=== PATIENT | female | born 1955 | race African-American/Black ===

== ENCOUNTER 2018-09-02 22:28 | Inpatient (IN) | payer BC, OTHER ==
[~2018-09-02] VITALS: Ht 149.9 cm; Wt 72.8 kg
[2018-09-02] MEDS ORDERED: IV NORMAL SALINE 500ML BAG 500 ML IV ONE (22:45)
[2018-09-02] MEDS ORDERED: IPRATRPIUM/ALBUTEROL 0.5/2.5MG 3 ML NEBU. NEB ONE (22:45)
[2018-09-02 22:56] LABS: BASO % 1 % (0-3); EOS % 1 % (0-3); HEMATOCRIT 39.3 % (36.0-47.0); LYMPH # 2.8 x10^3/uL (1.0-4.8); LYMPH % 39 % (24-48); MEAN CORPUSCULAR HEMOGLOBIN 33 pg (25-35); MEAN CORPUSCULAR HGB CONC 33 g/dL (31-37); MEAN CORPUSCULAR VOLUME 99 fL (79-100); MONO # 0.7 x10^3/uL (0.0-1.1); MONO % 10 % (0-9); NEUT # 3.7 x10^3uL (1.8-7.7); NEUT % 51 % (31-73); PLATELET COUNT 147 x10^3/uL (140-400); RED BLOOD COUNT 3.96 x10^6/uL (3.50-5.40); RED CELL DISTRIBUTION WIDTH 13.8 % (11.5-14.5); WHITE BLOOD COUNT 7.3 x10^3/uL (4.0-11.0)
[2018-09-02 23:07] LABS: CALCIUM 8.4 mg/dL (8.5-10.1); CREATININE 3.1 mg/dL (0.6-1.0); GFR 15.1; POTASSIUM 4.7 mmol/L (3.5-5.1)
[2018-09-02 23:25] LABS: ALBUMIN/GLOBULIN RATIO 0.6 (1.0-1.7); MAGNESIUM 2.9 mg/dL (1.8-2.4); TOTAL BILIRUBIN 0.6 mg/dL (0.2-1.0); TOTAL PROTEIN 7.9 g/dL (6.4-8.2)
[2018-09-02] MEDS ORDERED: IV NORMAL SALINE 1000ML BAG 1,000 ML IV ONE (23:45)
[2018-09-03 00:14] LABS: BILIRUBIN,URINE NEGATIVE (NEG); CLARITY,URINE CLEAR; COLOR,URINE YELLOW; NITRITE,URINE NEGATIVE (NEG); PH,URINE 5.5; PROTEIN,URINE 30 mg/dL (NEG-TRACE); UROBILINOGEN,URINE 0.2 mg/dL (0.2 mg/dL)
[2018-09-03 00:28] LABS: BACTERIA,URINE 0 /HPF (0-FEW); RBC,URINE RARE /HPF (0-2); SQUAMOUS EPITHELIAL CELL,UR FEW /LPF; WBC,URINE 0 /HPF (0-4)
[2018-09-03 00:29] LABS: INFLUENZA A PATIENT NEGATIVE (NEGATIVE); INFLUENZA B PATIENT NEGATIVE (NEGATIVE)
--- NOTE | 2018-09-03 00:36 | PHYS DOC ---
Past Medical History Past Medical History: CHF, COPD, Diabetes-Type II, [place] Past Surgical History: Coronary Bypass Surgery, , Hysterectomy Alcohol Use: None Drug Use: None Adult General Chief Complaint Chief Complaint: WEAKNESS/GENERALIZED HPI HPI Patient is a 63 year old female who presents with generalized weakness and shortness of breath. This is been present for the past several days and getting worse over time. No fever. Decreased oral intake. Worsening symptoms with exertion, better with rest. No chest pain or palpitations. Symptoms are moderate to severe in intensity.[] Review of Systems Review of Systems Constitutional: Denies fever or chills [] Eyes: Denies change in visual acuity, redness, or eye pain [] HENT: Denies nasal congestion or sore throat [] Respiratory: See history of present illness[] Cardiovascular: No Chest pain or palpitations[] GI: Denies abdominal pain, nausea, vomiting, bloody stools or diarrhea [] : Denies dysuria or hematuria [] Musculoskeletal: Denies back pain or joint pain [] Integument: Denies rash or skin lesions [] Neurologic: Denies headache, focal weakness or sensory changes [] Endocrine: Denies polyuria or polydipsia [] All other systems were reviewed and found to be within normal limits, except as documented in this note. Current Medications Current Medications Current Medications Medications (Trade) Dose Ordered Sig/Rodney Start Time Stop Time Status Last Admin Dose Admin Albuterol/ Ipratropium (Duoneb) 3 ml 1X ONCE 09/02/18 22:45 09/02/18 22:52 DC 09/02/18 22:52 3 ML Sodium Chloride 1,000 ml @ 1,000 mls/hr 1X ONCE 09/02/18 23:45 09/03/18 00:44 DC 09/02/18 23:44 1,000 MLS/HR Allergies Allergies Allergies Coded Allergies Type Severity Reaction Last Updated Verified lisinopril Allergy Severe hives 09/02/18 Yes Iodinated Contrast- Oral and IV Dye Allergy Mild hives 09/02/18 Yes latex Allergy Mild hives 09/02/18 Yes Physical Exam Physical Exam Constitutional: Well developed, well nourished, no acute distress, non-toxic appearance. [] HENT: Normocephalic, atraumatic, bilateral external ears normal, oropharynx moist, no oral exudates, nose normal. [] Eyes: PERRLA, EOMI, conjunctiva normal, no discharge. [] Neck: Normal range of motion, no tenderness, supple, no stridor. [] Cardiovascular:Heart rate regular rhythm, no murmur [] Lungs & Thorax: Bilateral breath sounds clear to auscultation [] Abdomen: Bowel sounds normal, soft, no tenderness, no masses, no pulsatile masses. [] Skin: Warm, dry, no erythema, no rash. [] Back: No tenderness, no CVA tenderness. [] Extremities: No tenderness, no cyanosis, no clubbing, ROM intact, no edema. [] Neurologic: Alert and oriented X 3, normal motor function, normal sensory function, no focal deficits noted. [] Psychologic: Affect normal, judgement normal, mood normal. [] Current Patient Data Vital Signs Vital Signs Date Time Temp Pulse Resp B/P (MAP) Pulse Ox O2 Delivery O2 Flow Rate FiO2 09/02/18 23:51 96 20 95 09/02/18 22:54 Nasal Cannula 3.0 09/02/18 22:28 99.4 79/42 (54) 99.4 Lab Values Laboratory Tests Test 09/02/18 22:40 09/03/18 00:03 White Blood Count 7.3 x10^3/uL (4.0-11.0) Red Blood Count 3.96 x10^6/uL (3.50-5.40) Hemoglobin 13.0 g/dL (12.0-15.5) Hematocrit 39.3 % (36.0-47.0) Mean Corpuscular Volume 99 fL (79-100) Mean Corpuscular Hemoglobin 33 pg (25-35) Mean Corpuscular Hemoglobin Concent 33 g/dL (31-37) Red Cell Distribution Width 13.8 % (11.5-14.5) Platelet Count 147 x10^3/uL (140-400) Neutrophils (%) (Auto) 51 % (31-73) Lymphocytes (%) (Auto) 39 % (24-48) Monocytes (%) (Auto) 10 % (0-9) H Eosinophils (%) (Auto) 1 % (0-3) Basophils (%) (Auto) 1 % (0-3) Neutrophils # (Auto) 3.7 x10^3uL (1.8-7.7) Lymphocytes # (Auto) 2.8 x10^3/uL (1.0-4.8) Monocytes # (Auto) 0.7 x10^3/uL (0.0-1.1) Eosinophils # (Auto) 0.0 x10^3/uL (0.0-0.7) Basophils # (Auto) 0.0 x10^3/uL (0.0-0.2) Prothrombin Time 13.0 SEC (11.7-14.0) Prothrombin Time INR 1.0 (0.8-1.1) Sodium Level 138 mmol/L (136-145) Potassium Level 4.7 mmol/L (3.5-5.1) Chloride Level 99 mmol/L (98-107) Carbon Dioxide Level 30 mmol/L (21-32) Anion Gap 9 (6-14) Blood Urea Nitrogen 56 mg/dL (7-20) H Creatinine 3.1 mg/dL (0.6-1.0) H Estimated GFR (Cockcroft-Gault) 15.1 BUN/Creatinine Ratio 18 (6-20) Glucose Level 156 mg/dL (70-99) H Lactic Acid Level 1.5 mmol/L (0.4-2.0) Calcium Level 8.4 mg/dL (8.5-10.1) L Magnesium Level 2.9 mg/dL (1.8-2.4) H Total Bilirubin 0.6 mg/dL (0.2-1.0) Aspartate Amino Transferase (AST) 31 U/L (15-37) Alanine Aminotransferase (ALT) 24 U/L (14-59) Alkaline Phosphatase 68 U/L (46-116) Troponin I Quantitative 0.042 ng/mL (0.000-0.055) BE-Vkk-Y-Type Natriuretic Peptide 544 pg/mL (0-124) H Total Protein 7.9 g/dL (6.4-8.2) Albumin 3.0 g/dL (3.4-5.0) L Albumin/Globulin Ratio 0.6 (1.0-1.7) L Urine Collection Type U cath Urine Color Yellow Urine Clarity Clear Urine pH 5.5 Urine Specific [place] 1.015 Urine Protein 30 mg/dL (NEG-TRACE) Urine Glucose (UA) Negative mg/dL (NEG) Urine Ketones (Stick) Negative mg/dL (NEG) Urine Blood Negative (NEG) Urine Nitrite Negative (NEG) Urine Bilirubin Negative (NEG) Urine Urobilinogen Dipstick 0.2 mg/dL (0.2 mg/dL) Urine Leukocyte Esterase Negative (NEG) Urine RBC Rare /HPF (0-2) Urine WBC 0 /HPF (0-4) Urine Squamous Epithelial Cells Few /LPF Urine Bacteria 0 /HPF (0-FEW) Urine Mucus Slight /LPF Influenza Type A Antigen Negative (NEGATIVE) Influenza Type B Antigen Negative (NEGATIVE) Laboratory Tests 09/02/18 22:40 Laboratory Tests 09/02/18 22:40 EKG EKG [] Interpretation Time: EKG shows a sinus tachycardia at 105 bpm, left axis deviation, no ST elevation, QTC of 464 ms, interpreted by me at 2244 Radiology/Procedures Radiology/Procedures Chest x-ray shows no infiltrate, no effusion, and no pneumothorax[] Course & Med Decision Making Course & Med Decision Making Pertinent Labs and Imaging studies reviewed. (See chart for details) ED course: Patient arrived, was placed in bed, and tolerated exam well. She was noted to be hypertensive and due to concern about possible fluid overload initial 500 mL bolus was administered which didn't improve her blood pressure as well as reduce her heart rate 70 additional fluids were administered. Patient was given a breathing treatment which improved her breath sounds. Due to the weakness and the hypotension, along with the COPD exacerbation, elected to admit the patient.[] Dragon Disclaimer Dragon Disclaimer This electronic medical record was generated, in whole or in part, using a voice recognition dictation system. Departure Departure Impression: Primary Impression: Weakness Additional Impressions: Hypotension COPD exacerbation Renal insufficiency Disposition: ADMITTED INPATIENT Admitting Physician: Betarice Adam Condition: IMPROVED Referrals: RICKY ARNOLD (PCP) Problem Qualifiers Additional Impressions: Hypotension Hypotension type: unspecified hypotension type Qualified Codes: I95.9 - Hypotension, unspecified TIFFANY GUTIERREZ Sep 03, 2018 00:36
[2018-09-03] MEDS ORDERED: methylPREDNISolone SOD SUCC PF 125 MG/2 ML VIAL. IV ONE (00:45)
[2018-09-03] MEDS ORDERED: IV NORMAL SALINE 500ML BAG 500 ML IV ONE (01:15)
[2018-09-03] MEDS ORDERED: ONDANSETRON PF 4 MG/2 ML VIAL. IV PRN (01:30)
[2018-09-03] MEDS ORDERED: ACETAMINOPHEN 325 MG TABLET. PO PRN (01:30)
[2018-09-03 02:20] VITALS: BP 115/56
--- NOTE | 2018-09-03 03:09 | RAD ---
AP portable chest radiograph 09/03/2018 Clinical History: Shortness of breath. History of CHF. An AP erect portable digital radiograph of the chest was obtained. No previous studies are available for comparison. The patient is post CABG procedure. The cardiac silhouette is mildly enlarged. The thoracic aorta is tortuous. Prominence of the pulmonary vasculature is seen suggesting mild CHF. No area of consolidation is noted. No pneumothorax or pleural effusion is seen. Degenerative changes are seen involving the thoracic spine and both shoulders. IMPRESSION: Findings suggesting mild CHF. Electronically signed by: Pablo Grimm MD (09/03/2018 3:07 AM) [id number]
[2018-09-03] MEDS ORDERED: ASPI1CPM6 PO (03:44)
--- NOTE | 2018-09-03 05:14 | EKG ---
[facility] [address] [place] [address] Test Date: 2018-09-02 Test Time: 22:38:48 Pat Name: GEORGE RIVERA Department: Room: 207 1 Gender: F Cal[employer] Tender: : 1955 Requested By: TIFFANY GUTIERREZ Order Number: [id number] Reading MD: Ezio Adkins MD Measurements Intervals [place] Rate: 104 P: 34 AR: 138 QRS: -34 QRSD: 86 T: 116 QT: 348 QTc: 464 Interpretive Statements SINUS TACHYCARDIA LVH Electronically Signed On 09-03-2018 9:24:46 CDT by Ezio Adkins MD
[2018-09-03] MEDS: IV NORMAL SALINE 1000ML BAG 1,000 ML IV SCH ×3 (05:50→12:14)
[2018-09-03 07:00] VITALS: BP 114/56
[2018-09-03] MEDS ORDERED: IPRATRPIUM/ALBUTEROL 0.5/2.5MG 3 ML NEBU. NEB SCH (08:00)
[2018-09-03] MEDS ORDERED: ISOS20TA4 PO (08:40)
[2018-09-03] MEDS ORDERED: AMMO225L8 TP (08:40)
[2018-09-03] MEDS ORDERED: TIOT18CA IH (08:40)
[2018-09-03] MEDS ORDERED: GABA300C18 PO (08:40)
[2018-09-03] MEDS ORDERED: HYDR-2867 PO (08:40)
[2018-09-03] MEDS ORDERED: POTA20TA82 PO (08:40)
[2018-09-03] MEDS ORDERED: FURO80TA3 PO (08:40)
[2018-09-03] MEDS ORDERED: INSU100I13 SQ (08:40)
[2018-09-03] MEDS ORDERED: MAGN400T22 PO (08:40)
[2018-09-03] MEDS ORDERED: ASPI-630 PO (08:40)
[2018-09-03] MEDS ORDERED: ATORVASTATIN CA80 MG PO (08:40)
[2018-09-03] MEDS ORDERED: LORA10TA3 PO (08:40)
[2018-09-03] MEDS ORDERED: LOSA25TA54 PO (08:40)
[2018-09-03] MEDS ORDERED: GABAPENTIN 300 MG CAPSULE. PO PRN (09:30)
[2018-09-03] MEDS: hydrALAZINE 10 MG TABLET PO SCH ×3 (10:00→21:13)
[2018-09-03] MEDS: ISOSORBIDE DINITRATE 10 MG TABLET. PO SCH ×3 (10:00→21:14)
[2018-09-03] MEDS: LOSARTAN POTASSIUM 25 MG TABLET. PO SCH (10:00)
[2018-09-03] MEDS: AMMONIUM LACTATE 12% TOPICAL LOTION 226GM BOTTLE. TP SCH ×2 (10:00→21:14)
[2018-09-03 11:00] VITALS: BP_SYST 107; BP_DIAS 107; BP_DIAS 59
--- NOTE | 2018-09-03 11:00 | PDOC1 ---
History and Physical Date of Admission Date of Admission DATE: 09/03/18 TIME: 11:00 Identification/Chief Complaint Chief Complaint SEEN IN ER WITH generalized weakness and shortness of breath. This is been present for the past several days and getting worse over time. No fever. Decreased oral intake. Worsening symptoms with exertion, SOA and chest pain. Reports that she has been having chills and fever in the last 2-3 days. still smoking 1/2 ppd x 45 yrs Past Medical History Past Medical History Past Medical History Past Medical History Past Medical History: CHF, COPD, Diabetes-Type II, [place] Past Surgical History: Coronary Bypass Surgery, , Hysterectomy Alcohol Use: None Drug Use: None fhx obesity Pulmonary: Bronchitis, COPD Musculoskeletal: Osteoarthritis Renal/: Chronic renal failure Endocrine: Diabetes Family History Family History: Hypertension Social History Smoke: <1 pack per day ALCOHOL: none Drugs: None Current Problem List Problem List Problems Medical Problems: (1) COPD exacerbation Status: Acute (2) Hypotension Status: Acute (3) Renal insufficiency Status: Acute (4) Weakness Status: Acute Current Medications Current Medications Current Medications Sodium Chloride 500 ml @ 500 mls/hr 1X ONCE IV Last administered on at 23:02; Start 09/02/18 at 22:45; Stop 09/02/18 at 23:44; Status DC Albuterol/ Ipratropium (Duoneb) 3 ml 1X ONCE NEB Last administered on at 22:52; Start 09/02/18 at 22:45; Stop 09/02/18 at 22:52; Status DC Sodium Chloride 1,000 ml @ 1,000 mls/hr 1X ONCE IV Last administered on at 23:44; Start 09/02/18 at 23:45; Stop 09/03/18 at 00:44; Status DC Methylprednisolone Sodium Succinate (SOLU-Medrol 125MG VIAL) 125 mg 1X ONCE IV Last administered on 09/03/18at 01:02; Start 09/03/18 at 00:45; Stop 09/03/18 at 00:46; Status DC Sodium Chloride 500 ml @ 500 mls/hr 1X ONCE IV ; Start 09/03/18 at 01:15; Stop 09/03/18 at 02:14; Status DC Ondansetron HCl (Zofran) 4 mg PRN Q8HRS PRN IV NAUSEA/VOMITING; Start 09/03/18 at 01:30; Stop 09/04/18 at 01:29 Sodium Chloride 1,000 ml @ 150 mls/hr Q6H40M IV Last administered on at 05:50; Start 09/03/18 at 01:30; Stop 09/04/18 at 01:29 Acetaminophen (Tylenol) 650 mg PRN Q4HRS PRN PO FEVER; Start 09/03/18 at 01:30 ; Stop 09/04/18 at 01:29 Albuterol/ Ipratropium (Duoneb) 3 ml RTQID NEB Last administered on 09/03/18at 08:23; Start 09/03/18 at 08:00; Stop 09/03/18 at 09:31; Status DC Lactic Acid (Lac-Hydrin) 1 sherri BID TP ; Start 09/03/18 at 10:00 Aspirin (Children'S Aspirin) 81 mg DAILY PO ; Start 09/03/18 at 10:00 Furosemide (Lasix) 80 mg BID94 PO ; Start 09/03/18 at 10:00 Gabapentin (Neurontin) 300 mg PRN BID PRN PO neuropathy; Start 09/03/18 at 09: 30 Insulin Glargine (Lantus) 10 units QHS SQ ; Start 09/03/18 at 21:00 Losartan Potassium (Cozaar) 25 mg DAILY PO ; Start 09/03/18 at 10:00 Dipyridamole/ Aspirin (Aggrenox) 1 cap BID PO ; Start 09/03/18 at 10:00 Atorvastatin Calcium (Lipitor) 80 mg DAILY PO ; Start 09/03/18 at 10:00 Hydralazine HCl (Apresoline) 10 mg TID PO ; Start 09/03/18 at 10:00 Isosorbide Dinitrate (Isordil) 20 mg TID PO ; Start 09/03/18 at 10:00 Cetirizine HCl (ZyrTEC) 10 mg DAILY PO ; Start 09/04/18 at 09:00 Magnesium Oxide (Magnesium Oxide) 400 mg BID PO ; Start 09/03/18 at 10:00 Potassium Chloride (Klor-Con) 20 meq DAILYWBKFT PO ; Start 09/03/18 at 10:00 Albuterol/ Ipratropium (Duoneb) 3 ml RTQID NEB ; Start 09/03/18 at 12:00 Active Scripts Active Reported Spiriva (Tiotropium [place]) 18 Mcg Cap.w.dev 2 Inh IH DAILY Potassium Chloride 20 Meq Tablet.er 20 Meq PO DAILY Mag-Oxide (Magnesium Oxide) 400 Mg Tablet 1 Tab PO BID Losartan Potassium (Losartan Potassium) 25 Mg Tablet 25 Mg PO DAILY Loratadine 10 Mg Tablet 10 Tab PO DAILY Lantus Solostar (Insulin Glargine,Hum.rec.anlog) 100 Unit/1 Ml Insuln.pen 10 Unit SQ QHS Isosorbide Dinitrate 20 Mg Tablet 20 Mg PO TID Hydralazine Hcl 10 Mg Tablet 1 Tab PO TID Gabapentin (Gabapentin) 300 Mg Capsule 300 Mg PO BID PRN Furosemide 80 Mg Tablet 1 Tab PO BID Atorvastatin Calcium 80 Mg Tablet 1 Tab PO DAILY Aspirin 81 Mg Tab.chew 1 Tab PO DAILY Skin Treatment (Ammonium Lactate) 225 Gm Lotion 225 Gm TP BID Aspirin-Dipyridam ER 25-200 mg (Aspirin/Dipyridamole) 1 Each Cpmp.12hr 25-200 Mg PO BID Allergies Allergies: Coded Allergies: lisinopril (Verified Allergy, Severe, hives, 09/02/18) Iodinated Contrast- Oral and IV Dye (Verified Allergy, Mild, hives, ) latex (Verified Allergy, Mild, hives, 09/02/18) ROS Review of System Review of Systems Review of Systems Constitutional: Denies fever or chills [] Eyes: Denies change in visual acuity, redness, or eye pain [] HENT: Denies nasal congestion or sore throat [] Respiratory: See history of present illness[] Cardiovascular: No Chest pain or palpitations[] GI: Denies abdominal pain, nausea, vomiting, bloody stools or diarrhea [] : Denies dysuria or hematuria [] Musculoskeletal: Denies back pain or joint pain [] Integument: Denies rash or skin lesions [] Neurologic: Denies headache, focal weakness or sensory changes [] Endocrine: Denies polyuria or polydipsia [] 14 PT systems were reviewed and found to be within normal limits, except as documented General: YES: Fatigue ALLERGY AND IMMUNOLOGY: No: Hives, Insect Bite Sensitivity, Itchy/Watery Eyes, Nasal Congestion, Post Nasal Drip, Seasonal Allergies, Other ENDOCRINE: No: Breast Changes, Galactorrhea, Hair Pattern Changes, Hot Flashes , Malaise/lethargy, Mood Swings, Palpitations, Polydipsia/polyuria, Skin Changes , Temperature Intolerance, Unexpected Weight Changes, Other Respiratory: YES: Cough, Shortness of breath, SOB with excertion, Sputum Changes Cardiovascular: yes Other (chest tightness with cough) Genitourinary: No Dysuria, No Frequency, No Incontinence, No Hematuria, No Retention, No Discharge, No Urgency, No Pain, No Flank Pain, No Other, No , No , No , No , No , No , No Physical Exam Physical Exam Physical Exam Physical Exam Constitutional: Well developed, well nourished, mild acute distress, non-toxic appearance. [] HENT: Normocephalic, atraumatic, bilateral external ears normal, oropharynx moist, no oral exudates, nose normal. [] Eyes: PERRLA, EOMI, conjunctiva normal, no discharge. [] Neck: Normal range of motion, no tenderness, supple, no stridor. [] Cardiovascular:Heart rate regular rhythm, no murmur [] Lungs & Thorax: Bilateral breath exp phase inc, few exp wheezes[] Abdomen: Bowel sounds normal, soft, no tenderness, no masses, no pulsatile masses. [] Skin: Warm, dry, no erythema, no rash. [] Back: No tenderness, no CVA tenderness. [] Extremities: No tenderness, no cyanosis, no clubbing, ROM intact, no edema. [] Neurologic: Alert and oriented X 3, normal motor function, normal sensory function, no focal deficits noted. [] Psychologic: Affect normal, judgement normal, mood normal. [] General: Alert, Oriented X3, Cooperative HEENT: Atraumatic Breasts: Not examined Abdomen: Soft PELVIC: Examination not indicated Extremities: No cyanosis Neuro: Normal speech, Sensation intact, Cranial nerves 3-12 NL Psych/Mental Status: Mental status NL Vitals Vitals Vital Signs Date Time Temp Pulse Resp B/P (MAP) Pulse Ox O2 Delivery O2 Flow Rate FiO2 09/03/18 08:24 95 Nasal Cannula 3.0 09/03/18 07:00 98.7 88 18 114/56 (75) 98.7 Labs Labs Laboratory Tests Test 09/02/18 22:40 09/03/18 00:03 09/03/18 04:15 09/03/18 07:29 White Blood Count 7.3 x10^3/uL (4.0-11.0) Red Blood Count 3.96 x10^6/uL (3.50-5.40) Hemoglobin 13.0 g/dL (12.0-15.5) Hematocrit 39.3 % (36.0-47.0) Mean Corpuscular Volume 99 fL (79-100) Mean Corpuscular Hemoglobin 33 pg (25-35) Mean Corpuscular Hemoglobin Concent 33 g/dL (31-37) Red Cell Distribution Width 13.8 % (11.5-14.5) Platelet Count 147 x10^3/uL (140-400) Neutrophils (%) (Auto) 51 % (31-73) Lymphocytes (%) (Auto) 39 % (24-48) Monocytes (%) (Auto) 10 % (0-9) Eosinophils (%) (Auto) 1 % (0-3) Basophils (%) (Auto) 1 % (0-3) Neutrophils # (Auto) 3.7 x10^3uL (1.8-7.7) Lymphocytes # (Auto) 2.8 x10^3/uL (1.0-4.8) Monocytes # (Auto) 0.7 x10^3/uL (0.0-1.1) Eosinophils # (Auto) 0.0 x10^3/uL (0.0-0.7) Basophils # (Auto) 0.0 x10^3/uL (0.0-0.2) Prothrombin Time 13.0 SEC (11.7-14.0) Prothromb Time International Ratio 1.0 (0.8-1.1) Sodium Level 138 mmol/L (136-145) Potassium Level 4.7 mmol/L (3.5-5.1) Chloride Level 99 mmol/L (98-107) Carbon Dioxide Level 30 mmol/L (21-32) Anion Gap 9 (6-14) Blood Urea Nitrogen 56 mg/dL (7-20) Creatinine 3.1 mg/dL (0.6-1.0) Estimated GFR (Cockcroft-Gault) 15.1 BUN/Creatinine Ratio 18 (6-20) Glucose Level 156 mg/dL (70-99) Lactic Acid Level 1.5 mmol/L (0.4-2.0) Calcium Level 8.4 mg/dL (8.5-10.1) Magnesium Level 2.9 mg/dL (1.8-2.4) Total Bilirubin 0.6 mg/dL (0.2-1.0) Aspartate Amino Transf (AST/SGOT) 31 U/L (15-37) Alanine Aminotransferase (ALT/SGPT) 24 U/L (14-59) Alkaline Phosphatase 68 U/L (46-116) Troponin I Quantitative 0.042 ng/mL (0.000-0.055) 0.064 ng/mL (0.000-0.055) SL-Tcz-B-Type Natriuretic Peptide 544 pg/mL (0-124) Total Protein 7.9 g/dL (6.4-8.2) Albumin 3.0 g/dL (3.4-5.0) Albumin/Globulin Ratio 0.6 (1.0-1.7) Urine Collection Type U cath Urine Color Yellow Urine Clarity Clear Urine pH 5.5 Urine Specific Fowler 1.015 Urine Protein 30 mg/dL (NEG-TRACE) Urine Glucose (UA) Negative mg/dL (NEG) Urine Ketones (Stick) Negative mg/dL (NEG) Urine Blood Negative (NEG) Urine Nitrite Negative (NEG) Urine Bilirubin Negative (NEG) Urine Urobilinogen Dipstick 0.2 mg/dL (0.2 mg/dL) Urine Leukocyte Esterase Negative (NEG) Urine RBC Rare /HPF (0-2) Urine WBC 0 /HPF (0-4) Urine Squamous Epithelial Cells Few /LPF Urine Bacteria 0 /HPF (0-FEW) Urine Mucus Slight /LPF Influenza Type A Antigen Negative (NEGATIVE) Influenza Type B Antigen Negative (NEGATIVE) Glucose (Fingerstick) 178 mg/dL (70-99) Test 09/03/18 07:40 Troponin I Quantitative 0.057 ng/mL (0.000-0.055) Laboratory Tests Test 09/02/18 22:40 09/03/18 00:03 09/03/18 04:15 09/03/18 07:29 White Blood Count 7.3 x10^3/uL (4.0-11.0) Red Blood Count 3.96 x10^6/uL (3.50-5.40) Hemoglobin 13.0 g/dL (12.0-15.5) Hematocrit 39.3 % (36.0-47.0) Mean Corpuscular Volume 99 fL (79-100) Mean Corpuscular Hemoglobin 33 pg (25-35) Mean Corpuscular Hemoglobin Concent 33 g/dL (31-37) Red Cell Distribution Width 13.8 % (11.5-14.5) Platelet Count 147 x10^3/uL (140-400) Neutrophils (%) (Auto) 51 % (31-73) Lymphocytes (%) (Auto) 39 % (24-48) Monocytes (%) (Auto) 10 % (0-9) Eosinophils (%) (Auto) 1 % (0-3) Basophils (%) (Auto) 1 % (0-3) Neutrophils # (Auto) 3.7 x10^3uL (1.8-7.7) Lymphocytes # (Auto) 2.8 x10^3/uL (1.0-4.8) Monocytes # (Auto) 0.7 x10^3/uL (0.0-1.1) Eosinophils # (Auto) 0.0 x10^3/uL (0.0-0.7) Basophils # (Auto) 0.0 x10^3/uL (0.0-0.2) Prothrombin Time 13.0 SEC (11.7-14.0) Prothromb Time International Ratio 1.0 (0.8-1.1) Sodium Level 138 mmol/L (136-145) Potassium Level 4.7 mmol/L (3.5-5.1) Chloride Level 99 mmol/L (98-107) Carbon Dioxide Level 30 mmol/L (21-32) Anion Gap 9 (6-14) Blood Urea Nitrogen 56 mg/dL (7-20) Creatinine 3.1 mg/dL (0.6-1.0) Estimated GFR (Cockcroft-Gault) 15.1 BUN/Creatinine Ratio 18 (6-20) Glucose Level 156 mg/dL (70-99) Lactic Acid Level 1.5 mmol/L (0.4-2.0) Calcium Level 8.4 mg/dL (8.5-10.1) Magnesium Level 2.9 mg/dL (1.8-2.4) Total Bilirubin 0.6 mg/dL (0.2-1.0) Aspartate Amino Transf (AST/SGOT) 31 U/L (15-37) Alanine Aminotransferase (ALT/SGPT) 24 U/L (14-59) Alkaline Phosphatase 68 U/L (46-116) Troponin I Quantitative 0.042 ng/mL (0.000-0.055) 0.064 ng/mL (0.000-0.055) FL-Qbe-N-Type Natriuretic Peptide 544 pg/mL (0-124) Total Protein 7.9 g/dL (6.4-8.2) Albumin 3.0 g/dL (3.4-5.0) Albumin/Globulin Ratio 0.6 (1.0-1.7) Urine Collection Type U cath Urine Color Yellow Urine Clarity Clear Urine pH 5.5 Urine Specific Fowler 1.015 Urine Protein 30 mg/dL (NEG-TRACE) Urine Glucose (UA) Negative mg/dL (NEG) Urine Ketones (Stick) Negative mg/dL (NEG) Urine Blood Negative (NEG) Urine Nitrite Negative (NEG) Urine Bilirubin Negative (NEG) Urine Urobilinogen Dipstick 0.2 mg/dL (0.2 mg/dL) Urine Leukocyte Esterase Negative (NEG) Urine RBC Rare /HPF (0-2) Urine WBC 0 /HPF (0-4) Urine Squamous Epithelial Cells Few /LPF Urine Bacteria 0 /HPF (0-FEW) Urine Mucus Slight /LPF Influenza Type A Antigen Negative (NEGATIVE) Influenza Type B Antigen Negative (NEGATIVE) Glucose (Fingerstick) 178 mg/dL (70-99) Test 09/03/18 07:40 Troponin I Quantitative 0.057 ng/mL (0.000-0.055) Images Images AP portable chest radiograph 09/03/2018 Clinical History: Shortness of breath. History of CHF. An AP erect portable digital radiograph of the chest was obtained. No previous studies are available for comparison. The patient is post CABG procedure. The cardiac silhouette is mildly enlarged. The thoracic aorta is tortuous. Prominence of the pulmonary vasculature is seen suggesting mild CHF. No area of consolidation is noted. No pneumothorax or pleural effusion is seen. Degenerative changes are seen involving the thoracic spine and both shoulders. IMPRESSION: Findings suggesting mild CHF. Electronically signed by: Pablo Grimm MD (09/03/2018 3:07 AM) [facility] One or more of the following individualized dose reduction techniques were utilized for this examination: 1. Automated exposure control 2. Adjustment of the mA and/or kV according to patient size 3. Use of iterative reconstruction technique CT chest without contrast September 03, 2018 INDICATION: Dyspnea. COMPARISON: None available. TECHNIQUE: Multiple axial CT images of the chest were obtained without intravenous contrast. Coronal and sagittal reformats are provided. FINDINGS: The thyroid gland is normal in appearance. Precarinal lymph node measures 9 mm by short axis. Subcarinal lymph node measures 13 mm by short axis. Heart size is within normal limits. There are three-vessel coronary artery vascular calcifications. Ascending thoracic aorta is normal in course and caliber with moderate calcified atheromatous plaque. There are no pathologically enlarged axillary or internal mammary lymph nodes. Median sternotomy changes are present. There is no pericardial effusion. There is a 4 mm solid noncalcified pulmonary nodule in the superior segment right lower lobe (series 3, image 31). There is a 3 mm solid noncalcified pulmonary nodule in the posterior right upper lobe (series 3, image 1). There are no pleural effusions. No pulmonary vascular congestion. No focal airspace consolidation. No suspicious abnormal is identified in the visualized portions of the upper abdomen. No suspicious osseous abnormality is identified. IMPRESSION: 1. No focal pulmonary infiltrates are identified. 2. Solid noncalcified pulmonary nodules measure up to 4 mm. Recommend optional one-year follow-up chest CT based on risk factors to ensure stability. 3. Coronary artery vascular calcifications compatible with CAD. Electronically signed by: Cintia Palafox MD (09/03/2018 1:11 PM) [facility] Pulmonary Vein S1 Velocity 55.5cm/s D2 Velocity 63.8cm/s PVa duration 104msec LEFT VENTRICLE The left ventricle is normal size. Proximal septal thickening is noted. The left ventricular systolic function is normal. The Ejection Fraction is 55-60%. There is normal LV segmental wall motion. Transmitral Doppler flow pattern is Grade I-abnormal relaxation pattern. RIGHT VENTRICLE The right ventricle is normal size. There is normal right ventricular wall thickness. The right ventricular systolic function is normal. ATRIA The left atrium is borderline dilated. The right atrium size is normal. The interatrial septum is intact with no evidence for an atrial septal defect or patent foramen ovale as noted on 2-D or Doppler imaging. AORTIC VALVE The aortic valve is mildly calcified. Doppler and Color Flow revealed moderate aortic regurgitation. There is mild aortic stenosis. MITRAL VALVE The mitral valve is thickened but opens well. There is no evidence of mitral valve prolapse. There is no mitral valve stenosis. Doppler and Color-flow revealed trace mitral regurgitation. TRICUSPID VALVE The tricuspid valve is normal in structure and function. Doppler and Color Flow revealed no tricuspid valve regurgitation noted. There is no tricuspid valve prolapse or vegetation. There is no tricuspid valve stenosis. PULMONIC VALVE The pulmonic valve is not well visualized. GREAT VESSELS The aortic root is normal in size. The ascending aorta is normal in size. The IVC is normal in size and collapses >50% with inspiration. PERICARDIAL EFFUSION There is no evidence of significant pericardial effusion. Critical Notification Critical Value: No <Conclusion> The left ventricular systolic function is normal. The Ejection Fraction is 55-60%. There is normal LV segmental wall motion. Transmitral Doppler flow pattern is Grade I-abnormal relaxation pattern. Mild aortic stenosis. Moderate aortic regurgitation. Trace mitral regurgitation. There is no evidence of significant pericardial effusion. VTE Prophylaxis Ordered VTE Prophylaxis Devices: Yes VTE Pharmacological Prophylaxi: Yes Assessment/Plan Assessment/Plan ASSESSMENT 1. Atypical CP: 2. AE COPD with possible pneumonia //home tmax 102.9 3. Possible early sepsis with poor hydration adequacy: BP better after IVF. 4. diastolic CHF 5. RUFUS on CKD3: 6. Mild troponin elevation: peaked at 0.06// demand mediated related to above culprits 7. CAD; CABG x5 06/2008 8. IV DYE ALLERGY 9. Hyperglycemia 10.cardiomyopathy: EF on 05/2016 35% PLAN 1. TTE, 2. CT chest 3. STRESS TEST as indicated 4. cardiac records.from [facility] 6. Smoking cessation 7. Consult pulmonary 8. dvt prophylaxis 9. renal consult 10, iv doxy 100mg bid 11. follow renal fx 12. duonebs qid 13. gi prophylaxis 74 min exam time, chart review, > 50% of time with exam, chart review, pt care coordination ANTHONY SINGH MD Sep 03, 2018 11:00
[2018-09-03 11:37] LABS: CALCIUM 8.5 mg/dL (8.5-10.1); CREATININE 2.4 mg/dL (0.6-1.0); GFR 24.5; POTASSIUM 5.1 mmol/L (3.5-5.1)
[2018-09-03] MEDS: POTASSIUM CHLORIDE 20 MEQ TABLET.ER. PO SCH (11:39)
[2018-09-03] MEDS: ATORVASTATIN CALCIUM 40 MG TABLET. PO SCH (11:39)
[2018-09-03] MEDS: ASPIRIN/DIPYRIDAMOLE 200/25MG CAP.ER.12H. PO SCH ×2 (11:40→21:13)
[2018-09-03] MEDS: MAGNESIUM OXIDE 400 MG TABLET PO SCH ×2 (11:40→21:14)
[2018-09-03] MEDS: ASPIRIN CHEWABLE 81 MG TABLET. PO SCH (11:40)
[2018-09-03] MEDS: FUROSEMIDE 80 MG TABLET. PO SCH ×2 (11:40→12:14)
--- NOTE | 2018-09-03 11:53 | PDOC2 ---
ORLIN ISAACS [employer] 09/03/18 1153: CARDIAC CONSULT DATE OF CONSULT Date of Consult DATE: 09/03/18 TIME: 10:49 REASON FOR CONSULT Reason for Consult: Elevated trop REFERRING PHYSICIAN Referring Physician: Fullbright SOURCE Source: Chart review, Patient HISTORY OF PRESENT ILLNESS HISTORY OF PRESENT ILLNESS This is a pleasant 63 yo female admitted for complains of SOA and chest pain. Reports that she has been having chills and fever in the last 2-3 days. She also has not been drinking enough fluids in the last few days, feeling lost of appetite. She has been coughing and feeling ore SOA in the last 3 days. Leon been having productive cough with yellow sputum. Her exertional tolerance is low but no changes prior to her start of symptoms. She has not been sleeping well due to cough. She vomited at one time after coughing. Her chest pain is described as tightness after bouts of coughing. No palpiations, dizziness or any passing out. 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 She does have renal insufficiency, CAD, and COPD and her specialists are all in [facility]. The last stress test was 2 yrs ago and it was ok as this was told of her. No frequent NSAID use. She use O2 at night only. She still smokes tobacco. PAST MEDICAL HISTORY Cardiovascular: CAD, HTN, Hyperlipidemia Pulmonary: COPD, Other (NAVEED) CENTRAL NERVOUS SYSTEM: CVA GI: GERD Heme/Onc: Anemia NOS Hepatobiliary: No pertinent hx Psych: No pertinent hx Musculoskeletal: Osteoarthritis Rheumatologic: No pertinent hx, Gout Infectious disease: No pertinent hx ENT: No pertinent hx Renal/: Chronic renal insuff Endocrine: Diabetes (wa taken off insulin previously with last noted A1C at 5.4 ), Hypothyroidism Dermatology: No pertinent hx PAST SURGICAL HISTORY Past Surgical History: CABG (x5 06/2008), (x2), Hysterectomy ([facility]ANCHO/BSO) FAMILY HISTORY Family History: Heart Disease SOCIAL HISTORY Smoke: <1 pack per day ALCOHOL: none Drugs: None Lives: Alone CURRENT MEDICATIONS CURRENT MEDICATIONS Current Medications Medications (Trade) Dose Ordered Sig/Rodney Route PRN Reason Start Time Stop Time Status Last Admin Dose Admin Sodium Chloride 500 ml @ 500 mls/hr 1X ONCE IV 09/02/18 22:45 09/02/18 23:44 DC 09/02/18 23:02 Albuterol/ Ipratropium (Duoneb) 3 ml 1X ONCE NEB 09/02/18 22:45 09/02/18 22:52 DC 09/02/18 22:52 Sodium Chloride 1,000 ml @ 1,000 mls/hr 1X ONCE IV 09/02/18 23:45 09/03/18 00:44 DC 09/02/18 23:44 Methylprednisolone Sodium Succinate (SOLU-Medrol 125MG VIAL) 125 mg 1X ONCE IV 09/03/18 00:45 09/03/18 00:46 DC 09/03/18 01:02 Sodium Chloride 1,000 ml @ 150 mls/hr Q6H40M IV 09/03/18 01:30 09/04/18 01:29 09/03/18 05:50 Albuterol/ Ipratropium (Duoneb) 3 ml RTQID NEB 09/03/18 08:00 09/03/18 09:31 DC 09/03/18 08:23 ALLERGIES ALLERGIES: Coded Allergies: lisinopril (Verified Allergy, Severe, hives, 09/02/18) Iodinated Contrast- Oral and IV Dye (Verified Allergy, Mild, hives, ) latex (Verified Allergy, Mild, hives, 09/02/18) ROS Review of System 14 point ROS evaluated with pertinent positives noted per HPI PHYSICAL EXAM General: Alert, Oriented X3, Cooperative, No acute distress HEENT: Atraumatic, Mucous membr. moist/pink Lungs: Other (upper rhonchi with diffuse expiratory wheeze) Heart: Regular rate (SR), Other (distant hearts ounds) Abdomen: Soft, No tenderness Extremities: No cyanosis, No edema Skin: No breakdown, No significant lesion Neuro: Normal speech, Sensation intact Psych/Mental Status: Mental status NL, Mood NL MUSCULOSKELETAL: Osteoarthritic changes both hands VITALS VITALS Vital Signs Date Time Temp Pulse Resp B/P (MAP) Pulse Ox O2 Delivery O2 Flow Rate FiO2 09/03/18 08:24 95 Nasal Cannula 3.0 09/03/18 07:00 98.7 88 18 114/56 (75) 98.7 LABS Lab: Laboratory Tests Test 09/02/18 22:40 09/03/18 00:03 09/03/18 04:15 09/03/18 07:29 White Blood Count 7.3 x10^3/uL (4.0-11.0) Red Blood Count 3.96 x10^6/uL (3.50-5.40) Hemoglobin 13.0 g/dL (12.0-15.5) Hematocrit 39.3 % (36.0-47.0) Mean Corpuscular Volume 99 fL (79-100) Mean Corpuscular Hemoglobin 33 pg (25-35) Mean Corpuscular Hemoglobin Concent 33 g/dL (31-37) Red Cell Distribution Width 13.8 % (11.5-14.5) Platelet Count 147 x10^3/uL (140-400) Neutrophils (%) (Auto) 51 % (31-73) Lymphocytes (%) (Auto) 39 % (24-48) Monocytes (%) (Auto) 10 % (0-9) Eosinophils (%) (Auto) 1 % (0-3) Basophils (%) (Auto) 1 % (0-3) Neutrophils # (Auto) 3.7 x10^3uL (1.8-7.7) Lymphocytes # (Auto) 2.8 x10^3/uL (1.0-4.8) Monocytes # (Auto) 0.7 x10^3/uL (0.0-1.1) Eosinophils # (Auto) 0.0 x10^3/uL (0.0-0.7) Basophils # (Auto) 0.0 x10^3/uL (0.0-0.2) Prothrombin Time 13.0 SEC (11.7-14.0) Prothromb Time International Ratio 1.0 (0.8-1.1) Sodium Level 138 mmol/L (136-145) Potassium Level 4.7 mmol/L (3.5-5.1) Chloride Level 99 mmol/L (98-107) Carbon Dioxide Level 30 mmol/L (21-32) Anion Gap 9 (6-14) Blood Urea Nitrogen 56 mg/dL (7-20) Creatinine 3.1 mg/dL (0.6-1.0) Estimated GFR (Cockcroft-Gault) 15.1 BUN/Creatinine Ratio 18 (6-20) Glucose Level 156 mg/dL (70-99) Lactic Acid Level 1.5 mmol/L (0.4-2.0) Calcium Level 8.4 mg/dL (8.5-10.1) Magnesium Level 2.9 mg/dL (1.8-2.4) Total Bilirubin 0.6 mg/dL (0.2-1.0) Aspartate Amino Transf (AST/SGOT) 31 U/L (15-37) Alanine Aminotransferase (ALT/SGPT) 24 U/L (14-59) Alkaline Phosphatase 68 U/L (46-116) Troponin I Quantitative 0.042 ng/mL (0.000-0.055) 0.064 ng/mL (0.000-0.055) YW-Mdy-E-Type Natriuretic Peptide 544 pg/mL (0-124) Total Protein 7.9 g/dL (6.4-8.2) Albumin 3.0 g/dL (3.4-5.0) Albumin/Globulin Ratio 0.6 (1.0-1.7) Urine Collection Type U cath Urine Color Yellow Urine Clarity Clear Urine pH 5.5 Urine Specific [place] 1.015 Urine Protein 30 mg/dL (NEG-TRACE) Urine Glucose (UA) Negative mg/dL (NEG) Urine Ketones (Stick) Negative mg/dL (NEG) Urine Blood Negative (NEG) Urine Nitrite Negative (NEG) Urine Bilirubin Negative (NEG) Urine Urobilinogen Dipstick 0.2 mg/dL (0.2 mg/dL) Urine Leukocyte Esterase Negative (NEG) Urine RBC Rare /HPF (0-2) Urine WBC 0 /HPF (0-4) Urine Squamous Epithelial Cells Few /LPF Urine Bacteria 0 /HPF (0-FEW) Urine Mucus Slight /LPF Influenza Type A Antigen Negative (NEGATIVE) Influenza Type B Antigen Negative (NEGATIVE) Glucose (Fingerstick) 178 mg/dL (70-99) Test 09/03/18 07:40 Troponin I Quantitative 0.057 ng/mL (0.000-0.055) ASSESSMENT/PLAN ASSESSMENT/PLAN 1. Atypical CP: doubt ACS. possibly from bronchospasm 2. AECOPD with possible pneumonia with continued tobaccoism: reported fever at home tmax 102.9 3. Possible early sepsis with poor hydration adequacy: BP better after IVF. 4. Mild diastolic CHF 5. RUFUS on CKD3: Cr at 3.1 with past Cr at 1.7 noted in 06/2017 6. Mild troponin elevation: peaked at 0.06. EKG SR with LVH, suspect demand mediated related to above culprits 7. CAD; CABG x5 06/2008 8. Hx of angioedema: both from IV contrast and ACEi 9. Hyperglycemia: possibly steroid related. Has hx of DM2 taken off insulin with reported A1C at 5.4, possible hypoglycemic episodes 10. Hx of cardiomyopathy: EF on 05/2016 35% Recommendations 1. TTE, TSH, lipids, A1C, BMP and Mg. 2. CT chest no contrast. Has received IVF. DC and push PO fluids. 3. Consider outpt stress test once extra cardiac issues are resolved. 4. Hold BP meds and diuretic for now till BP is consistently adequate 5. Will obtain cardiac records.from [facility] 6. Smoking cessation 7. Consult pulmonary FLOWER ANDERSON MD 09/03/18 1621: CARDIAC CONSULT ASSESSMENT/PLAN ASSESSMENT/PLAN Patient seen and examined. Agree with ADDRESSER's assessment and plan. Chest pain with atypical features Myocardial infarction has been ruled out 2-D echo showed normal LV systolic function without any wall motion abnormalities CAD status appears clinically stable Plan ischemic evaluation as an outpatient Continue current treatment for COPD exacerbation Thank you for your consultation ORLIN ISAACS APRN Sep 03, 2018 11:53 FLOWER ANDERSON MD Sep 03, 2018 16:21
[2018-09-03 11:58] LABS: MAGNESIUM 2.9 mg/dL (1.8-2.4)
[2018-09-03 12:04] LABS: CHOLESTEROL/HDL RATIO 6.5
[2018-09-03] MEDS: IPRATRPIUM/ALBUTEROL 0.5/2.5MG 3 ML NEBU. NEB SCH ×3 (12:48→20:34)
--- NOTE | 2018-09-03 13:14 | RAD ---
RS Compliance Statement: One or more of the following individualized dose reduction techniques were utilized for this examination: 1. Automated exposure control 2. Adjustment of the mA and/or kV according to patient size 3. Use of iterative reconstruction technique CT chest without contrast September 03, 2018 INDICATION: Dyspnea. COMPARISON: None available. TECHNIQUE: Multiple axial CT images of the chest were obtained without intravenous contrast. Coronal and sagittal reformats are provided. FINDINGS: The thyroid gland is normal in appearance. Precarinal lymph node measures 9 mm by short axis. Subcarinal lymph node measures 13 mm by short axis. Heart size is within normal limits. There are three-vessel coronary artery vascular calcifications. Ascending thoracic aorta is normal in course and caliber with moderate calcified atheromatous plaque. There are no pathologically enlarged axillary or internal mammary lymph nodes. Median sternotomy changes are present. There is no pericardial effusion. There is a 4 mm solid noncalcified pulmonary nodule in the superior segment right lower lobe (series 3, image 31). There is a 3 mm solid noncalcified pulmonary nodule in the posterior right upper lobe (series 3, image 1). There are no pleural effusions. No pulmonary vascular congestion. No focal airspace consolidation. No suspicious abnormal is identified in the visualized portions of the upper abdomen. No suspicious osseous abnormality is identified. IMPRESSION: 1. No focal pulmonary infiltrates are identified. 2. Solid noncalcified pulmonary nodules measure up to 4 mm. Recommend optional one-year follow-up chest CT based on risk factors to ensure stability. 3. Coronary artery vascular calcifications compatible with CAD. Electronically signed by: Cintia Palafox MD (09/03/2018 1:11 PM) [id number]
--- NOTE | 2018-09-03 14:22 | CARD ---
MR#: [id number] Date of Study: 09/03/2018 Ordering Physician: ORLIN ISAACS, Referring Physician: STACY FAJARDO Tech: Terri Hearn ADINA APPROVED REPORT EXAM: Two-dimensional and M-mode echocardiogram with Doppler and color Doppler. Other Information Quality : AverageHR: 93bpm Rhythm : NSRTechnically limited study due to smoking and CABG. INDICATION Chest Pain Surgery/Intervention CABG: Date: 2006 2D DIMENSIONS RVDd3.0 (2.9-3.5cm)Left Atrium(2D)4.1 (1.6-4.0cm) IVSd1.1 (0.7-1.1cm)Aortic Root(2D)2.7 (2.0-3.7cm) LVDd4.4 (3.9-5.9cm)LVOT Diameter1.8 (1.8-2.4cm) PWd1.0 (0.7-1.1cm)LVDs3.1 (2.5-4.0cm) FS (%) 28.9 %SV48.3 ml LVEF(%)55.8 (>50%) M-Mode DIMENSIONS Left Atrium(MM)3.94 (2.5-4.0cm)Aortic Root3.03 (2.2-3.7cm) Aortic Valve AoV Peak Stevie.221.9cm/sAoV VTI39.3cm AO Peak GR.19.7mmHgLVOT Peak Stevie.91.0cm/s AO Mean GR.11mmHgAVA (VMAX)1.07cm2 NNAMDI (VTI)1.47xi9MY P 1/2 Cfoe774st Mitral Valve MV E Sixhhwor29.2cm/sMV E Peak Gr.12mmHg MV DECEL [id number] A Qlyljabk824.0cm/s MV E Mean Gr.5mmHgE/A Ratio0.6 MV A [id number] Pulmonary Valve PV Peak Tlokxoue73.3cm/s Pulmonary Vein S1 Risosxbj63.5cm/sD2 Lmopdvzi68.8cm/s PVa [id number] LEFT VENTRICLE The left ventricle is normal size. Proximal septal thickening is noted. The left ventricular systolic function is normal. The Ejection Fraction is 55-60%. There is normal LV segmental wall motion. Trans mitral Doppler flow pattern is Grade I-abnormal relaxation pattern. RIGHT VENTRICLE The right ventricle is normal size. There is normal right ventricular wall thickness. The right ventr icular systolic function is normal. ATRIA The left atrium is borderline dilated. The right atrium size is normal. The interatrial septum is int act with no evidence for an atrial septal defect or patent foramen ovale as noted on 2-D or Doppler i maging. AORTIC VALVE The aortic valve is mildly calcified. Doppler and Color Flow revealed moderate aortic regurgitation. There is mild aortic stenosis. MITRAL VALVE The mitral valve is thickened but opens well. There is no evidence of mitral valve prolapse. There is no mitral valve stenosis. Doppler and Color-flow revealed trace mitral regurgitation. TRICUSPID VALVE The tricuspid valve is normal in structure and function. Doppler and Color Flow revealed no tricuspid valve regurgitation noted. There is no tricuspid valve prolapse or vegetation. There is no tricuspid valve stenosis. PULMONIC VALVE The pulmonic valve is not well visualized. GREAT VESSELS The aortic root is normal in size. The ascending aorta is normal in size. The IVC is normal in size a nd collapses >50% with inspiration. PERICARDIAL EFFUSION There is no evidence of significant pericardial effusion. Critical Notification Critical Value: No <Conclusion> The left ventricular systolic function is normal. The Ejection Fraction is 55-60%. There is normal LV segmental wall motion. Transmitral Doppler flow pattern is Grade I-abnormal relaxation pattern. Mild aortic stenosis. Moderate aortic regurgitation. Trace mitral regurgitation. There is no evidence of significant pericardial effusion. Signed by : Eduardo Martell, Electronically Approved : 09/03/2018 14:22:43
[2018-09-03 15:00] VITALS: BP 109/53
[2018-09-03] MEDS ORDERED: IV NORMAL SALINE 1000ML BAG 1,000 ML IV ONE (15:00)
--- NOTE | 2018-09-03 16:51 | PDOC ---
PULMONARY PROGRESS NOTES Vitals Vital Signs Date Time Temp Pulse Resp B/P (MAP) Pulse Ox O2 Delivery O2 Flow Rate FiO2 09/03/18 16:02 Nasal Cannula 3.0 09/03/18 15:00 98.5 89 18 109/53 (71) 98 98.5 Labs Laboratory Tests Test 09/02/18 22:40 09/03/18 00:03 09/03/18 04:15 09/03/18 07:29 White Blood Count 7.3 x10^3/uL (4.0-11.0) Red Blood Count 3.96 x10^6/uL (3.50-5.40) Hemoglobin 13.0 g/dL (12.0-15.5) Hematocrit 39.3 % (36.0-47.0) Mean Corpuscular Volume 99 fL (79-100) Mean Corpuscular Hemoglobin 33 pg (25-35) Mean Corpuscular Hemoglobin Concent 33 g/dL (31-37) Red Cell Distribution Width 13.8 % (11.5-14.5) Platelet Count 147 x10^3/uL (140-400) Neutrophils (%) (Auto) 51 % (31-73) Lymphocytes (%) (Auto) 39 % (24-48) Monocytes (%) (Auto) 10 % (0-9) Eosinophils (%) (Auto) 1 % (0-3) Basophils (%) (Auto) 1 % (0-3) Neutrophils # (Auto) 3.7 x10^3uL (1.8-7.7) Lymphocytes # (Auto) 2.8 x10^3/uL (1.0-4.8) Monocytes # (Auto) 0.7 x10^3/uL (0.0-1.1) Eosinophils # (Auto) 0.0 x10^3/uL (0.0-0.7) Basophils # (Auto) 0.0 x10^3/uL (0.0-0.2) Prothrombin Time 13.0 SEC (11.7-14.0) Prothromb Time International Ratio 1.0 (0.8-1.1) Sodium Level 138 mmol/L (136-145) Potassium Level 4.7 mmol/L (3.5-5.1) Chloride Level 99 mmol/L (98-107) Carbon Dioxide Level 30 mmol/L (21-32) Anion Gap 9 (6-14) Blood Urea Nitrogen 56 mg/dL (7-20) Creatinine 3.1 mg/dL (0.6-1.0) Estimated GFR (Cockcroft-Gault) 15.1 BUN/Creatinine Ratio 18 (6-20) Glucose Level 156 mg/dL (70-99) Lactic Acid Level 1.5 mmol/L (0.4-2.0) Calcium Level 8.4 mg/dL (8.5-10.1) Magnesium Level 2.9 mg/dL (1.8-2.4) Total Bilirubin 0.6 mg/dL (0.2-1.0) Aspartate Amino Transf (AST/SGOT) 31 U/L (15-37) Alanine Aminotransferase (ALT/SGPT) 24 U/L (14-59) Alkaline Phosphatase 68 U/L (46-116) Troponin I Quantitative 0.042 ng/mL (0.000-0.055) 0.064 ng/mL (0.000-0.055) CS-Iph-S-Type Natriuretic Peptide 544 pg/mL (0-124) Total Protein 7.9 g/dL (6.4-8.2) Albumin 3.0 g/dL (3.4-5.0) Albumin/Globulin Ratio 0.6 (1.0-1.7) Urine Collection Type U cath Urine Color Yellow Urine Clarity Clear Urine pH 5.5 Urine Specific [place] 1.015 Urine Protein 30 mg/dL (NEG-TRACE) Urine Glucose (UA) Negative mg/dL (NEG) Urine Ketones (Stick) Negative mg/dL (NEG) Urine Blood Negative (NEG) Urine Nitrite Negative (NEG) Urine Bilirubin Negative (NEG) Urine Urobilinogen Dipstick 0.2 mg/dL (0.2 mg/dL) Urine Leukocyte Esterase Negative (NEG) Urine RBC Rare /HPF (0-2) Urine WBC 0 /HPF (0-4) Urine Squamous Epithelial Cells Few /LPF Urine Bacteria 0 /HPF (0-FEW) Urine Mucus Slight /LPF Influenza Type A Antigen Negative (NEGATIVE) Influenza Type B Antigen Negative (NEGATIVE) Glucose (Fingerstick) 178 mg/dL (70-99) Test 09/03/18 07:40 09/03/18 11:45 09/03/18 16:13 Sodium Level 141 mmol/L (136-145) Potassium Level 5.1 mmol/L (3.5-5.1) Chloride Level 105 mmol/L (98-107) Carbon Dioxide Level 27 mmol/L (21-32) Anion Gap 9 (6-14) Blood Urea Nitrogen 52 mg/dL (7-20) Creatinine 2.4 mg/dL (0.6-1.0) Estimated GFR (Cockcroft-Gault) 24.5 Glucose Level 181 mg/dL (70-99) Calcium Level 8.5 mg/dL (8.5-10.1) Magnesium Level 2.9 mg/dL (1.8-2.4) Troponin I Quantitative 0.057 ng/mL (0.000-0.055) Triglycerides Level 212 mg/dL (0-150) Cholesterol Level 136 mg/dL (0-200) LDL Cholesterol, Calculated 73 mg/dL (0-100) VLDL Cholesterol, Calculated 42 mg/dL (0-40) Non-HDL Cholesterol Calculated 115 mg/dL (0-129) HDL Cholesterol 21 mg/dL (40-60) Cholesterol/HDL Ratio 6.5 Thyroid Stimulating Hormone (TSH) 0.476 uIU/mL (0.358-3.74) Glucose (Fingerstick) 195 mg/dL (70-99) 222 mg/dL (70-99) Laboratory Tests Test 09/02/18 22:40 09/03/18 00:03 09/03/18 04:15 09/03/18 07:29 White Blood Count 7.3 x10^3/uL (4.0-11.0) Red Blood Count 3.96 x10^6/uL (3.50-5.40) Hemoglobin 13.0 g/dL (12.0-15.5) Hematocrit 39.3 % (36.0-47.0) Mean Corpuscular Volume 99 fL (79-100) Mean Corpuscular Hemoglobin 33 pg (25-35) Mean Corpuscular Hemoglobin Concent 33 g/dL (31-37) Red Cell Distribution Width 13.8 % (11.5-14.5) Platelet Count 147 x10^3/uL (140-400) Neutrophils (%) (Auto) 51 % (31-73) Lymphocytes (%) (Auto) 39 % (24-48) Monocytes (%) (Auto) 10 % (0-9) Eosinophils (%) (Auto) 1 % (0-3) Basophils (%) (Auto) 1 % (0-3) Neutrophils # (Auto) 3.7 x10^3uL (1.8-7.7) Lymphocytes # (Auto) 2.8 x10^3/uL (1.0-4.8) Monocytes # (Auto) 0.7 x10^3/uL (0.0-1.1) Eosinophils # (Auto) 0.0 x10^3/uL (0.0-0.7) Basophils # (Auto) 0.0 x10^3/uL (0.0-0.2) Prothrombin Time 13.0 SEC (11.7-14.0) Prothromb Time International Ratio 1.0 (0.8-1.1) Sodium Level 138 mmol/L (136-145) Potassium Level 4.7 mmol/L (3.5-5.1) Chloride Level 99 mmol/L (98-107) Carbon Dioxide Level 30 mmol/L (21-32) Anion Gap 9 (6-14) Blood Urea Nitrogen 56 mg/dL (7-20) Creatinine 3.1 mg/dL (0.6-1.0) Estimated GFR (Cockcroft-Gault) 15.1 BUN/Creatinine Ratio 18 (6-20) Glucose Level 156 mg/dL (70-99) Lactic Acid Level 1.5 mmol/L (0.4-2.0) Calcium Level 8.4 mg/dL (8.5-10.1) Magnesium Level 2.9 mg/dL (1.8-2.4) Total Bilirubin 0.6 mg/dL (0.2-1.0) Aspartate Amino Transf (AST/SGOT) 31 U/L (15-37) Alanine Aminotransferase (ALT/SGPT) 24 U/L (14-59) Alkaline Phosphatase 68 U/L (46-116) Troponin I Quantitative 0.042 ng/mL (0.000-0.055) 0.064 ng/mL (0.000-0.055) HJ-Qio-Z-Type Natriuretic Peptide 544 pg/mL (0-124) Total Protein 7.9 g/dL (6.4-8.2) Albumin 3.0 g/dL (3.4-5.0) Albumin/Globulin Ratio 0.6 (1.0-1.7) Urine Collection Type U cath Urine Color Yellow Urine Clarity Clear Urine pH 5.5 Urine Specific [place] 1.015 Urine Protein 30 mg/dL (NEG-TRACE) Urine Glucose (UA) Negative mg/dL (NEG) Urine Ketones (Stick) Negative mg/dL (NEG) Urine Blood Negative (NEG) Urine Nitrite Negative (NEG) Urine Bilirubin Negative (NEG) Urine Urobilinogen Dipstick 0.2 mg/dL (0.2 mg/dL) Urine Leukocyte Esterase Negative (NEG) Urine RBC Rare /HPF (0-2) Urine WBC 0 /HPF (0-4) Urine Squamous Epithelial Cells Few /LPF Urine Bacteria 0 /HPF (0-FEW) Urine Mucus Slight /LPF Influenza Type A Antigen Negative (NEGATIVE) Influenza Type B Antigen Negative (NEGATIVE) Glucose (Fingerstick) 178 mg/dL (70-99) Test 09/03/18 07:40 09/03/18 11:45 09/03/18 16:13 Sodium Level 141 mmol/L (136-145) Potassium Level 5.1 mmol/L (3.5-5.1) Chloride Level 105 mmol/L (98-107) Carbon Dioxide Level 27 mmol/L (21-32) Anion Gap 9 (6-14) Blood Urea Nitrogen 52 mg/dL (7-20) Creatinine 2.4 mg/dL (0.6-1.0) Estimated GFR (Cockcroft-Gault) 24.5 Glucose Level 181 mg/dL (70-99) Calcium Level 8.5 mg/dL (8.5-10.1) Magnesium Level 2.9 mg/dL (1.8-2.4) Troponin I Quantitative 0.057 ng/mL (0.000-0.055) Triglycerides Level 212 mg/dL (0-150) Cholesterol Level 136 mg/dL (0-200) LDL Cholesterol, Calculated 73 mg/dL (0-100) VLDL Cholesterol, Calculated 42 mg/dL (0-40) Non-HDL Cholesterol Calculated 115 mg/dL (0-129) HDL Cholesterol 21 mg/dL (40-60) Cholesterol/HDL Ratio 6.5 Thyroid Stimulating Hormone (TSH) 0.476 uIU/mL (0.358-3.74) Glucose (Fingerstick) 195 mg/dL (70-99) 222 mg/dL (70-99) Medications Active Scripts Medications Dose Route/Sig Max Daily Dose Days Date Category Spiriva (Tiotropium [place]) 18 Mcg Cap.w.dev 2 Inh IH DAILY 09/03/18 Reported Potassium Chloride 20 Meq Tablet.er 20 Meq PO DAILY 09/03/18 Reported Mag-Oxide (Magnesium Oxide) 400 Mg Tablet 1 Tab PO BID 09/03/18 Reported Losartan Potassium (Losartan Potassium) 25 Mg Tablet 25 Mg PO DAILY 09/03/18 Reported Loratadine 10 Mg Tablet 10 Tab PO DAILY 09/03/18 Reported Lantus Solostar (Insulin Glargine,Hum.rec.anlog) 100 Unit/1 Ml Insuln.pen 10 Unit SQ QHS 09/03/18 Reported Isosorbide Dinitrate 20 Mg Tablet 20 Mg PO TID 09/03/18 Reported Hydralazine Hcl 10 Mg Tablet 1 Tab PO TID 09/03/18 Reported Gabapentin (Gabapentin) 300 Mg Capsule 300 Mg PO BID PRN 09/03/18 Reported Furosemide 80 Mg Tablet 1 Tab PO BID 09/03/18 Reported Atorvastatin Calcium 80 Mg Tablet 1 Tab PO DAILY 09/03/18 Reported Aspirin 81 Mg Tab.chew 1 Tab PO DAILY 09/03/18 Reported Skin Treatment (Ammonium Lactate) 225 Gm Lotion 225 Gm TP BID 09/03/18 Reported Aspirin-Dipyridam ER 25-200 mg (Aspirin/Dipyridamole) 1 Each Cpmp.12hr 25-200 Mg PO BID 09/03/18 Reported Impression . AECOPD 4 MM NODULE NEEDS REPEAT CT IN 12 MONTHS' THEA CHAN MD Sep 03, 2018 16:51
[2018-09-03] MEDS: DOXYCYCLINE HYCLATE 100 MG in IV DEXTROSE 5% 100ML 100 ML IV SCH (17:52)
[2018-09-03 19:00] VITALS: BP 141/63
[2018-09-03] MEDS: INSULIN GLARGINE 300 UNITS/3 ML INSULN.PEN. SQ SCH (21:00)
[2018-09-03] MEDS: LACTOBACILLUS RHAMNOSUS GG 1 CAPSULE. PO SCH (21:13)
[2018-09-03] MEDS: HEPARIN for SUB-Q USE 5,000 UNIT/ML VIAL. SQ SCH (21:20)
[2018-09-03 23:00] VITALS: BP 122/56
[2018-09-03 23:10] LABS: HEMOGLOBIN A1C 5.3 % (4.8-5.6)
[2018-09-04 03:39] VITALS: BP 129/62
[2018-09-04 05:07] LABS: BASO % 0 % (0-3); EOS % 0 % (0-3); HEMATOCRIT 36.7 % (36.0-47.0); LYMPH # 2.7 x10^3/uL (1.0-4.8); LYMPH % 26 % (24-48); MEAN CORPUSCULAR HEMOGLOBIN 33 pg (25-35); MEAN CORPUSCULAR HGB CONC 33 g/dL (31-37); MEAN CORPUSCULAR VOLUME 101 fL (79-100); MONO # 1.2 x10^3/uL (0.0-1.1); MONO % 11 % (0-9); NEUT # 6.5 x10^3uL (1.8-7.7); NEUT % 62 % (31-73); PLATELET COUNT 152 x10^3/uL (140-400); RED BLOOD COUNT 3.63 x10^6/uL (3.50-5.40); RED CELL DISTRIBUTION WIDTH 14.1 % (11.5-14.5); WHITE BLOOD COUNT 10.5 x10^3/uL (4.0-11.0)
--- NOTE | 2018-09-04 05:11 | CONS ---
DATE OF CONSULTATION: 09/03/2018 ATTENDING PHYSICIAN: Dr. Martin. REASON FOR CONSULTATION: The patient seen in pulmonary consultation at the request of the Cardiology Service for abnormal CT chest, revealing a 4 mm nodule. HISTORY OF PRESENT ILLNESS: The patient is a 63-year-old female that presented with increasing shortness of breath; cough, mostly nonproductive. She has a history of tobacco use, continues to smoke, experience acute exacerbation of COPD approximately 2-3 times a year. At one point, she was on albuterol, which was discontinued as a consequence of tachycardia. She presented with the above symptoms. She has been around some sick contact. She still smokes, wears oxygen at bedtime. No metered dose inhalers at this time. CT chest was obtained. I reviewed the CT, there is no evidence of infiltrates, there is a 4 mm nodule in the right lower lobe posteriorly. PAST MEDICAL HISTORY: Remarkable for coronary artery disease, hypertension, hyperlipidemia, COPD, tobacco dependence, previous CVA, she has some difficulty with balance and uses a walker, gastroesophageal reflux, osteoarthritis. PAST SURGICAL HISTORY: No recent major surgeries. ALLERGIES: CONTRAST DYE, LATEX, and LISINOPRIL. FAMILY HISTORY: No family history of early lung disorders. SOCIAL HISTORY: She continues to smoke. Denies any significant alcohol intake. REVIEW OF SYSTEMS: CONSTITUTIONAL: No fever or chills. EYES: No change in visual acuity. HEENT: No nasal congestion or sore throat. PULMONARY: As indicated above. CARDIOVASCULAR: As indicated above. GASTROINTESTINAL: No nausea, vomiting, diarrhea. GENITOURINARY: No dysuria or frequency. MUSCULOSKELETAL: No localized muscle aches or joint pains. SKIN: No new skin lesions. NEUROLOGIC: As indicated above. CURRENT MEDICATIONS: List was reviewed. PHYSICAL EXAMINATION: GENERAL: Obese individual with a BMI of 32. VITAL SIGNS: Stable. O2 saturation currently on 3 liters was greater than 92%. HEENT: Eyes, the sclerae were nonicteric. NECK: Jugular venous distention was not elevated. No lymphadenopathy. CHEST: Full expansion. LUNGS: Coarse breath sounds, scattered rhonchi, bilateral expiratory wheeze. CARDIOVASCULAR: Regular rate and rhythm with S1, S2, no S3. ABDOMEN: Soft, nontender, nondistended. EXTREMITIES: No clubbing, cyanosis or edema. NEUROLOGIC: The patient was awake, alert, following commands. A detailed neuro exam was not performed. LABORATORY DATA: Labs were reviewed. White count was normal. Serology for influenza was negative. Electrolytes were noted. INR was 1.0. CT as indicated above. IMPRESSION: 1. Progressive dyspnea secondary to acute exacerbation of chronic obstructive pulmonary disease. 2. Abnormal CT chest revealing 4 mm nodule, recommend repeating CT in 12 months. 3. Atypical chest pain. 4. Chronic diastolic heart failure. 5. Gbivf-an-vtepdpk kidney disease. 6. Elevated troponin. 7. Coronary artery disease with previous coronary artery bypass grafting. 8. Cardiomyopathy, ejection fraction in the past of 35%. PLAN: 1. Pulmonary status appears to be compensated. Recommend continue treatment with steroids and antibiotics. 2. Repeat CT chest in 12 months. 3. Follow Cardiology's input. 4. The patient instructed on the importance of avoiding caffeinated beverages, chocolates in means to reduce the chance of reflux. 5. The patient instructed on the importance of discontinued tobacco use. I do appreciate the privilege in sharing in the patient's care. THEA CHAN MD DR: RAYNE/ange JOB#: [id number] / [id number]
[2018-09-04 05:26] LABS: ALBUMIN 2.9 g/dL (3.4-5.0); ALBUMIN/GLOBULIN RATIO 0.7 (1.0-1.7); CALCIUM 8.4 mg/dL (8.5-10.1); GFR 30.3; POTASSIUM 4.6 mmol/L (3.5-5.1); TOTAL BILIRUBIN 0.4 mg/dL (0.2-1.0); TOTAL PROTEIN 7.3 g/dL (6.4-8.2)
[2018-09-04] MEDS: HEPARIN for SUB-Q USE 5,000 UNIT/ML VIAL. SQ SCH ×3 (05:39→21:47)
[2018-09-04 07:31] VITALS: BP 138/65
[2018-09-04] MEDS: IPRATRPIUM/ALBUTEROL 0.5/2.5MG 3 ML NEBU. NEB SCH ×4 (08:03→19:40)
[2018-09-04] MEDS: MAGNESIUM OXIDE 400 MG TABLET PO SCH ×2 (08:45→21:00)
[2018-09-04] MEDS: ISOSORBIDE DINITRATE 10 MG TABLET. PO SCH ×3 (08:45→21:00)
[2018-09-04] MEDS: FUROSEMIDE 80 MG TABLET. PO SCH (08:46)
[2018-09-04] MEDS: ASPIRIN/DIPYRIDAMOLE 200/25MG CAP.ER.12H. PO SCH ×2 (08:46→21:00)
[2018-09-04] MEDS: hydrALAZINE 10 MG TABLET PO SCH ×3 (08:46→21:00)
[2018-09-04] MEDS: ATORVASTATIN CALCIUM 40 MG TABLET. PO SCH (08:46)
[2018-09-04] MEDS: CETIRIZINE HCL 10 MG TABLET. PO SCH (08:47)
[2018-09-04] MEDS: POTASSIUM CHLORIDE 20 MEQ TABLET.ER. PO SCH (08:47)
[2018-09-04] MEDS: ASPIRIN CHEWABLE 81 MG TABLET. PO SCH (08:47)
[2018-09-04] MEDS: LOSARTAN POTASSIUM 25 MG TABLET. PO SCH (08:48)
[2018-09-04] MEDS: LACTOBACILLUS RHAMNOSUS GG 1 CAPSULE. PO SCH ×2 (08:48→21:00)
[2018-09-04] MEDS: DOXYCYCLINE HYCLATE 100 MG in IV DEXTROSE 5% 100ML 100 ML IV SCH ×2 (08:51→21:00)
--- NOTE | 2018-09-04 09:20 | PDOC ---
PULMONARY PROGRESS NOTES Subjective PT STILL SOA ANDD WHEEZE NO CHEST PAIN Vitals Vital Signs Date Time Temp Pulse Resp B/P (MAP) Pulse Ox O2 Delivery O2 Flow Rate FiO2 09/04/18 08:48 90 138/65 09/04/18 08:03 99 Nasal Cannula 3.0 09/04/18 07:31 98.2 18 98.2 ROS: No Nausea, No Chest Pain, No Abdominal Pain, No Increase Cough Lungs: Wheezing Cardiovascular: S1, S2 Abdomen: Soft Neuro Exam: Alert Extremities: No Edema Skin: Warm Labs Laboratory Tests Test 09/02/18 22:40 09/03/18 00:03 09/03/18 04:15 09/03/18 07:29 White Blood Count 7.3 x10^3/uL (4.0-11.0) Red Blood Count 3.96 x10^6/uL (3.50-5.40) Hemoglobin 13.0 g/dL (12.0-15.5) Hematocrit 39.3 % (36.0-47.0) Mean Corpuscular Volume 99 fL (79-100) Mean Corpuscular Hemoglobin 33 pg (25-35) Mean Corpuscular Hemoglobin Concent 33 g/dL (31-37) Red Cell Distribution Width 13.8 % (11.5-14.5) Platelet Count 147 x10^3/uL (140-400) Neutrophils (%) (Auto) 51 % (31-73) Lymphocytes (%) (Auto) 39 % (24-48) Monocytes (%) (Auto) 10 % (0-9) Eosinophils (%) (Auto) 1 % (0-3) Basophils (%) (Auto) 1 % (0-3) Neutrophils # (Auto) 3.7 x10^3uL (1.8-7.7) Lymphocytes # (Auto) 2.8 x10^3/uL (1.0-4.8) Monocytes # (Auto) 0.7 x10^3/uL (0.0-1.1) Eosinophils # (Auto) 0.0 x10^3/uL (0.0-0.7) Basophils # (Auto) 0.0 x10^3/uL (0.0-0.2) Prothrombin Time 13.0 SEC (11.7-14.0) Prothromb Time International Ratio 1.0 (0.8-1.1) Sodium Level 138 mmol/L (136-145) Potassium Level 4.7 mmol/L (3.5-5.1) Chloride Level 99 mmol/L (98-107) Carbon Dioxide Level 30 mmol/L (21-32) Anion Gap 9 (6-14) Blood Urea Nitrogen 56 mg/dL (7-20) Creatinine 3.1 mg/dL (0.6-1.0) Estimated GFR (Cockcroft-Gault) 15.1 BUN/Creatinine Ratio 18 (6-20) Glucose Level 156 mg/dL (70-99) Lactic Acid Level 1.5 mmol/L (0.4-2.0) Calcium Level 8.4 mg/dL (8.5-10.1) Magnesium Level 2.9 mg/dL (1.8-2.4) Total Bilirubin 0.6 mg/dL (0.2-1.0) Aspartate Amino Transf (AST/SGOT) 31 U/L (15-37) Alanine Aminotransferase (ALT/SGPT) 24 U/L (14-59) Alkaline Phosphatase 68 U/L (46-116) Troponin I Quantitative 0.042 ng/mL (0.000-0.055) 0.064 ng/mL (0.000-0.055) RU-Lqr-[id number]-Type Natriuretic Peptide 544 pg/mL (0-124) Total Protein 7.9 g/dL (6.4-8.2) Albumin 3.0 g/dL (3.4-5.0) Albumin/Globulin Ratio 0.6 (1.0-1.7) Urine Collection Type U cath Urine Color Yellow Urine Clarity Clear Urine pH 5.5 Urine Specific [place] 1.015 Urine Protein 30 mg/dL (NEG-TRACE) Urine Glucose (UA) Negative mg/dL (NEG) Urine Ketones (Stick) Negative mg/dL (NEG) Urine Blood Negative (NEG) Urine Nitrite Negative (NEG) Urine Bilirubin Negative (NEG) Urine Urobilinogen Dipstick 0.2 mg/dL (0.2 mg/dL) Urine Leukocyte Esterase Negative (NEG) Urine RBC Rare /HPF (0-2) Urine WBC 0 /HPF (0-4) Urine Squamous Epithelial Cells Few /LPF Urine Bacteria 0 /HPF (0-FEW) Urine Mucus Slight /LPF Influenza Type A Antigen Negative (NEGATIVE) Influenza Type B Antigen Negative (NEGATIVE) Glucose (Fingerstick) 178 mg/dL (70-99) Test 09/03/18 07:40 09/03/18 11:45 09/03/18 16:13 09/03/18 20:44 Sodium Level 141 mmol/L (136-145) Potassium Level 5.1 mmol/L (3.5-5.1) Chloride Level 105 mmol/L (98-107) Carbon Dioxide Level 27 mmol/L (21-32) Anion Gap 9 (6-14) Blood Urea Nitrogen 52 mg/dL (7-20) Creatinine 2.4 mg/dL (0.6-1.0) Estimated GFR (Cockcroft-Gault) 24.5 Glucose Level 181 mg/dL (70-99) Hemoglobin A1c 5.3 % (4.8-5.6) Calcium Level 8.5 mg/dL (8.5-10.1) Magnesium Level 2.9 mg/dL (1.8-2.4) Troponin I Quantitative 0.057 ng/mL (0.000-0.055) Triglycerides Level 212 mg/dL (0-150) Cholesterol Level 136 mg/dL (0-200) LDL Cholesterol, Calculated 73 mg/dL (0-100) VLDL Cholesterol, Calculated 42 mg/dL (0-40) Non-HDL Cholesterol Calculated 115 mg/dL (0-129) HDL Cholesterol 21 mg/dL (40-60) Cholesterol/HDL Ratio 6.5 Thyroid Stimulating Hormone (TSH) 0.476 uIU/mL (0.358-3.74) Glucose (Fingerstick) 195 mg/dL (70-99) 222 mg/dL (70-99) 144 mg/dL (70-99) Test 09/04/18 03:35 09/04/18 07:18 White Blood Count 10.5 x10^3/uL (4.0-11.0) Red Blood Count 3.63 x10^6/uL (3.50-5.40) Hemoglobin 12.0 g/dL (12.0-15.5) Hematocrit 36.7 % (36.0-47.0) Mean Corpuscular Volume 101 fL (79-100) Mean Corpuscular Hemoglobin 33 pg (25-35) Mean Corpuscular Hemoglobin Concent 33 g/dL (31-37) Red Cell Distribution Width 14.1 % (11.5-14.5) Platelet Count 152 x10^3/uL (140-400) Neutrophils (%) (Auto) 62 % (31-73) Lymphocytes (%) (Auto) 26 % (24-48) Monocytes (%) (Auto) 11 % (0-9) Eosinophils (%) (Auto) 0 % (0-3) Basophils (%) (Auto) 0 % (0-3) Neutrophils # (Auto) 6.5 x10^3uL (1.8-7.7) Lymphocytes # (Auto) 2.7 x10^3/uL (1.0-4.8) Monocytes # (Auto) 1.2 x10^3/uL (0.0-1.1) Eosinophils # (Auto) 0.0 x10^3/uL (0.0-0.7) Basophils # (Auto) 0.0 x10^3/uL (0.0-0.2) Sodium Level 143 mmol/L (136-145) Potassium Level 4.6 mmol/L (3.5-5.1) Chloride Level 105 mmol/L (98-107) Carbon Dioxide Level 29 mmol/L (21-32) Anion Gap 9 (6-14) Blood Urea Nitrogen 49 mg/dL (7-20) Creatinine 2.0 mg/dL (0.6-1.0) Estimated GFR (Cockcroft-Gault) 30.3 BUN/Creatinine Ratio 25 (6-20) Glucose Level 103 mg/dL (70-99) Calcium Level 8.4 mg/dL (8.5-10.1) Total Bilirubin 0.4 mg/dL (0.2-1.0) Aspartate Amino Transf (AST/SGOT) 25 U/L (15-37) Alanine Aminotransferase (ALT/SGPT) 20 U/L (14-59) Alkaline Phosphatase 61 U/L (46-116) Total Protein 7.3 g/dL (6.4-8.2) Albumin 2.9 g/dL (3.4-5.0) Albumin/Globulin Ratio 0.7 (1.0-1.7) Glucose (Fingerstick) 107 mg/dL (70-99) Laboratory Tests Test 09/03/18 11:45 09/03/18 16:13 09/03/18 20:44 09/04/18 03:35 Glucose (Fingerstick) 195 mg/dL (70-99) 222 mg/dL (70-99) 144 mg/dL (70-99) White Blood Count 10.5 x10^3/uL (4.0-11.0) Red Blood Count 3.63 x10^6/uL (3.50-5.40) Hemoglobin 12.0 g/dL (12.0-15.5) Hematocrit 36.7 % (36.0-47.0) Mean Corpuscular Volume 101 fL (79-100) Mean Corpuscular Hemoglobin 33 pg (25-35) Mean Corpuscular Hemoglobin Concent 33 g/dL (31-37) Red Cell Distribution Width 14.1 % (11.5-14.5) Platelet Count 152 x10^3/uL (140-400) Neutrophils (%) (Auto) 62 % (31-73) Lymphocytes (%) (Auto) 26 % (24-48) Monocytes (%) (Auto) 11 % (0-9) Eosinophils (%) (Auto) 0 % (0-3) Basophils (%) (Auto) 0 % (0-3) Neutrophils # (Auto) 6.5 x10^3uL (1.8-7.7) Lymphocytes # (Auto) 2.7 x10^3/uL (1.0-4.8) Monocytes # (Auto) 1.2 x10^3/uL (0.0-1.1) Eosinophils # (Auto) 0.0 x10^3/uL (0.0-0.7) Basophils # (Auto) 0.0 x10^3/uL (0.0-0.2) Sodium Level 143 mmol/L (136-145) Potassium Level 4.6 mmol/L (3.5-5.1) Chloride Level 105 mmol/L (98-107) Carbon Dioxide Level 29 mmol/L (21-32) Anion Gap 9 (6-14) Blood Urea Nitrogen 49 mg/dL (7-20) Creatinine 2.0 mg/dL (0.6-1.0) Estimated GFR (Cockcroft-Gault) 30.3 BUN/Creatinine Ratio 25 (6-20) Glucose Level 103 mg/dL (70-99) Calcium Level 8.4 mg/dL (8.5-10.1) Total Bilirubin 0.4 mg/dL (0.2-1.0) Aspartate Amino Transf (AST/SGOT) 25 U/L (15-37) Alanine Aminotransferase (ALT/SGPT) 20 U/L (14-59) Alkaline Phosphatase 61 U/L (46-116) Total Protein 7.3 g/dL (6.4-8.2) Albumin 2.9 g/dL (3.4-5.0) Albumin/Globulin Ratio 0.7 (1.0-1.7) Test 09/04/18 07:18 Glucose (Fingerstick) 107 mg/dL (70-99) Medications Active Scripts Medications Dose Route/Sig Max Daily Dose Days Date Category Spiriva (Tiotropium [place]) 18 Mcg Cap.w.dev 2 Inh IH DAILY 09/03/18 Reported Potassium Chloride 20 Meq Tablet.er 20 Meq PO DAILY 09/03/18 Reported Mag-Oxide (Magnesium Oxide) 400 Mg Tablet 1 Tab PO BID 09/03/18 Reported Losartan Potassium (Losartan Potassium) 25 Mg Tablet 25 Mg PO DAILY 09/03/18 Reported Loratadine 10 Mg Tablet 10 Tab PO DAILY 09/03/18 Reported Lantus Solostar (Insulin Glargine,Hum.rec.anlog) 100 Unit/1 Ml Insuln.pen 10 Unit SQ QHS 09/03/18 Reported Isosorbide Dinitrate 20 Mg Tablet 20 Mg PO TID 09/03/18 Reported Hydralazine Hcl 10 Mg Tablet 1 Tab PO TID 09/03/18 Reported Gabapentin (Gabapentin) 300 Mg Capsule 300 Mg PO BID PRN 09/03/18 Reported Furosemide 80 Mg Tablet 1 Tab PO BID 09/03/18 Reported Atorvastatin Calcium 80 Mg Tablet 1 Tab PO DAILY 09/03/18 Reported Aspirin 81 Mg Tab.chew 1 Tab PO DAILY 09/03/18 Reported Skin Treatment (Ammonium Lactate) 225 Gm Lotion 225 Gm TP BID 09/03/18 Reported Aspirin-Dipyridam ER 25-200 mg (Aspirin/Dipyridamole) 1 Each Cpmp.12hr 25-200 Mg PO BID 09/03/18 Reported Impression . IMPRESSION: 1. Progressive dyspnea secondary to acute exacerbation of chronic obstructive pulmonary disease. 2. Abnormal CT chest revealing 4 mm nodule, recommend repeating CT in 12 months. 3. Atypical chest pain. 4. Chronic diastolic heart failure. 5. Icinw-rh-mggwdam kidney disease. 6. Elevated troponin. 7. Coronary artery disease with previous coronary artery bypass grafting. 8. Cardiomyopathy, ejection fraction in the past of 35%. Plan . SLOW TO IMPROVE WILL CONTINUE THE SAME REPEAT CT IN 12 MONTHS FOLLOW CARD INPUT AVOID CAFFEINE AND TOBACCO THEA CHAN MD Sep 04, 2018 09:20
[2018-09-04 10:41] VITALS: BP 97/50
--- NOTE | 2018-09-04 11:06 | PDOC ---
PROGRESS NOTES History of Present Illness History of Present Illness Assessment/Plan Assessment/Plan ASSESSMENT 1. Atypical CP: 2. AE COPD with possible pneumonia //home tmax 102.9 3. Possible early sepsis with poor hydration adequacy: BP better after IVF. 4. diastolic CHF 5. RUFUS on CKD3: 6. Mild troponin elevation: peaked at 0.06// demand mediated related to above culprits 7. CAD; CABG x5 06/2008 8. IV DYE ALLERGY 9. Hyperglycemia 10.cardiomyopathy: EF on 05/2016 35% 11. Coronary artery vascular calcifications compatible with CAD.ON CT 09/04 WHEEZING NOT IMPROVED PLAN 1. TTE, 2. CT chest REVIEWED 3. STRESS TEST as indicated 4. cardiac records.from [facility] 6. Smoking cessation 7. Consult pulmonary 8. dvt prophylaxis 9. renal consult 10, iv doxy 100mg bid 11. follow renal fx 12. duonebs qid 13. gi prophylaxis 26 min exam time, chart review, > 50% of time with exam, chart review, pt care coordination Vitals Vitals Vital Signs Date Time Temp Pulse Resp B/P (MAP) Pulse Ox O2 Delivery O2 Flow Rate FiO2 09/04/18 10:41 98.1 90 18 97/50 (66) 98 Nasal Cannula 2.5 98.1 Physical Exam Physical Exam Physical Exam General: Alert, Oriented X3, Cooperative Heart: Regular rate (SR), Other (distant hearts Sounds) Abdomen: Soft Extremities: No cyanosis Skin: No breakdown, No significant lesion General: Alert, Oriented X3, Cooperative, mild distress Heart: Regular rate (SR), Normal S1, Other (distant hearts ounds) Lungs: Wheezing Abdomen: Normal bowel sounds, Soft, No hepatosplenomegaly, No masses Extremities: No clubbing, No cyanosis Skin: No breakdown, No significant lesion Labs LABS PQRS Compliance Statement: One or more of the following individualized dose reduction techniques were utilized for this examination: 1. Automated exposure control 2. Adjustment of the mA and/or kV according to patient size 3. Use of iterative reconstruction technique CT chest without contrast September 03, 2018 INDICATION: Dyspnea. COMPARISON: None available. TECHNIQUE: Multiple axial CT images of the chest were obtained without intravenous contrast. Coronal and sagittal reformats are provided. FINDINGS: The thyroid gland is normal in appearance. Precarinal lymph node measures 9 mm by short axis. Subcarinal lymph node measures 13 mm by short axis. Heart size is within normal limits. There are three-vessel coronary artery vascular calcifications. Ascending thoracic aorta is normal in course and caliber with moderate calcified atheromatous plaque. There are no pathologically enlarged axillary or internal mammary lymph nodes. Median sternotomy changes are present. There is no pericardial effusion. There is a 4 mm solid noncalcified pulmonary nodule in the superior segment right lower lobe (series 3, image 31). There is a 3 mm solid noncalcified pulmonary nodule in the posterior right upper lobe (series 3, image 1). There are no pleural effusions. No pulmonary vascular congestion. No focal airspace consolidation. No suspicious abnormal is identified in the visualized portions of the upper abdomen. No suspicious osseous abnormality is identified. IMPRESSION: 1. No focal pulmonary infiltrates are identified. 2. Solid noncalcified pulmonary nodules measure up to 4 mm. Recommend optional one-year follow-up chest CT based on risk factors to ensure stability. 3. Coronary artery vascular calcifications compatible with CAD. Electronically signed by: Cintia Palafox MD (09/03/2018 1:11 PM) Laboratory Tests Test 09/03/18 11:45 09/03/18 16:13 09/03/18 20:44 09/04/18 03:35 Glucose (Fingerstick) 195 mg/dL (70-99) 222 mg/dL (70-99) 144 mg/dL (70-99) White Blood Count 10.5 x10^3/uL (4.0-11.0) Red Blood Count 3.63 x10^6/uL (3.50-5.40) Hemoglobin 12.0 g/dL (12.0-15.5) Hematocrit 36.7 % (36.0-47.0) Mean Corpuscular Volume 101 fL (79-100) Mean Corpuscular Hemoglobin 33 pg (25-35) Mean Corpuscular Hemoglobin Concent 33 g/dL (31-37) Red Cell Distribution Width 14.1 % (11.5-14.5) Platelet Count 152 x10^3/uL (140-400) Neutrophils (%) (Auto) 62 % (31-73) Lymphocytes (%) (Auto) 26 % (24-48) Monocytes (%) (Auto) 11 % (0-9) Eosinophils (%) (Auto) 0 % (0-3) Basophils (%) (Auto) 0 % (0-3) Neutrophils # (Auto) 6.5 x10^3uL (1.8-7.7) Lymphocytes # (Auto) 2.7 x10^3/uL (1.0-4.8) Monocytes # (Auto) 1.2 x10^3/uL (0.0-1.1) Eosinophils # (Auto) 0.0 x10^3/uL (0.0-0.7) Basophils # (Auto) 0.0 x10^3/uL (0.0-0.2) Sodium Level 143 mmol/L (136-145) Potassium Level 4.6 mmol/L (3.5-5.1) Chloride Level 105 mmol/L (98-107) Carbon Dioxide Level 29 mmol/L (21-32) Anion Gap 9 (6-14) Blood Urea Nitrogen 49 mg/dL (7-20) Creatinine 2.0 mg/dL (0.6-1.0) Estimated GFR (Cockcroft-Gault) 30.3 BUN/Creatinine Ratio 25 (6-20) Glucose Level 103 mg/dL (70-99) Calcium Level 8.4 mg/dL (8.5-10.1) Total Bilirubin 0.4 mg/dL (0.2-1.0) Aspartate Amino Transf (AST/SGOT) 25 U/L (15-37) Alanine Aminotransferase (ALT/SGPT) 20 U/L (14-59) Alkaline Phosphatase 61 U/L (46-116) Total Protein 7.3 g/dL (6.4-8.2) Albumin 2.9 g/dL (3.4-5.0) Albumin/Globulin Ratio 0.7 (1.0-1.7) Test 09/04/18 07:18 Glucose (Fingerstick) 107 mg/dL (70-99) Assessment and Plan Assessmemt and Plan Problems Medical Problems: (1) COPD exacerbation Status: Acute (2) Hypotension Status: Acute (3) Renal insufficiency Status: Acute (4) Weakness Status: Acute Comment Review of Relevant I have reviewed the following items alvaro (where applicable) has been applied. Labs Laboratory Tests Test 09/02/18 22:40 09/03/18 00:03 09/03/18 04:15 09/03/18 07:29 White Blood Count 7.3 x10^3/uL (4.0-11.0) Red Blood Count 3.96 x10^6/uL (3.50-5.40) Hemoglobin 13.0 g/dL (12.0-15.5) Hematocrit 39.3 % (36.0-47.0) Mean Corpuscular Volume 99 fL (79-100) Mean Corpuscular Hemoglobin 33 pg (25-35) Mean Corpuscular Hemoglobin Concent 33 g/dL (31-37) Red Cell Distribution Width 13.8 % (11.5-14.5) Platelet Count 147 x10^3/uL (140-400) Neutrophils (%) (Auto) 51 % (31-73) Lymphocytes (%) (Auto) 39 % (24-48) Monocytes (%) (Auto) 10 % (0-9) Eosinophils (%) (Auto) 1 % (0-3) Basophils (%) (Auto) 1 % (0-3) Neutrophils # (Auto) 3.7 x10^3uL (1.8-7.7) Lymphocytes # (Auto) 2.8 x10^3/uL (1.0-4.8) Monocytes # (Auto) 0.7 x10^3/uL (0.0-1.1) Eosinophils # (Auto) 0.0 x10^3/uL (0.0-0.7) Basophils # (Auto) 0.0 x10^3/uL (0.0-0.2) Prothrombin Time 13.0 SEC (11.7-14.0) Prothromb Time International Ratio 1.0 (0.8-1.1) Sodium Level 138 mmol/L (136-145) Potassium Level 4.7 mmol/L (3.5-5.1) Chloride Level 99 mmol/L (98-107) Carbon Dioxide Level 30 mmol/L (21-32) Anion Gap 9 (6-14) Blood Urea Nitrogen 56 mg/dL (7-20) Creatinine 3.1 mg/dL (0.6-1.0) Estimated GFR (Cockcroft-Gault) 15.1 BUN/Creatinine Ratio 18 (6-20) Glucose Level 156 mg/dL (70-99) Lactic Acid Level 1.5 mmol/L (0.4-2.0) Calcium Level 8.4 mg/dL (8.5-10.1) Magnesium Level 2.9 mg/dL (1.8-2.4) Total Bilirubin 0.6 mg/dL (0.2-1.0) Aspartate Amino Transf (AST/SGOT) 31 U/L (15-37) Alanine Aminotransferase (ALT/SGPT) 24 U/L (14-59) Alkaline Phosphatase 68 U/L (46-116) Troponin I Quantitative 0.042 ng/mL (0.000-0.055) 0.064 ng/mL (0.000-0.055) CX-Lbi-V-Type Natriuretic Peptide 544 pg/mL (0-124) Total Protein 7.9 g/dL (6.4-8.2) Albumin 3.0 g/dL (3.4-5.0) Albumin/Globulin Ratio 0.6 (1.0-1.7) Urine Collection Type U cath Urine Color Yellow Urine Clarity Clear Urine pH 5.5 Urine Specific [place] 1.015 Urine Protein 30 mg/dL (NEG-TRACE) Urine Glucose (UA) Negative mg/dL (NEG) Urine Ketones (Stick) Negative mg/dL (NEG) Urine Blood Negative (NEG) Urine Nitrite Negative (NEG) Urine Bilirubin Negative (NEG) Urine Urobilinogen Dipstick 0.2 mg/dL (0.2 mg/dL) Urine Leukocyte Esterase Negative (NEG) Urine RBC Rare /HPF (0-2) Urine WBC 0 /HPF (0-4) Urine Squamous Epithelial Cells Few /LPF Urine Bacteria 0 /HPF (0-FEW) Urine Mucus Slight /LPF Influenza Type A Antigen Negative (NEGATIVE) Influenza Type B Antigen Negative (NEGATIVE) Glucose (Fingerstick) 178 mg/dL (70-99) Test 09/03/18 07:40 09/03/18 11:45 09/03/18 16:13 09/03/18 20:44 Sodium Level 141 mmol/L (136-145) Potassium Level 5.1 mmol/L (3.5-5.1) Chloride Level 105 mmol/L (98-107) Carbon Dioxide Level 27 mmol/L (21-32) Anion Gap 9 (6-14) Blood Urea Nitrogen 52 mg/dL (7-20) Creatinine 2.4 mg/dL (0.6-1.0) Estimated GFR (Cockcroft-Gault) 24.5 Glucose Level 181 mg/dL (70-99) Hemoglobin A1c 5.3 % (4.8-5.6) Calcium Level 8.5 mg/dL (8.5-10.1) Magnesium Level 2.9 mg/dL (1.8-2.4) Troponin I Quantitative 0.057 ng/mL (0.000-0.055) Triglycerides Level 212 mg/dL (0-150) Cholesterol Level 136 mg/dL (0-200) LDL Cholesterol, Calculated 73 mg/dL (0-100) VLDL Cholesterol, Calculated 42 mg/dL (0-40) Non-HDL Cholesterol Calculated 115 mg/dL (0-129) HDL Cholesterol 21 mg/dL (40-60) Cholesterol/HDL Ratio 6.5 Thyroid Stimulating Hormone (TSH) 0.476 uIU/mL (0.358-3.74) Glucose (Fingerstick) 195 mg/dL (70-99) 222 mg/dL (70-99) 144 mg/dL (70-99) Test 09/04/18 03:35 09/04/18 07:18 White Blood Count 10.5 x10^3/uL (4.0-11.0) Red Blood Count 3.63 x10^6/uL (3.50-5.40) Hemoglobin 12.0 g/dL (12.0-15.5) Hematocrit 36.7 % (36.0-47.0) Mean Corpuscular Volume 101 fL (79-100) Mean Corpuscular Hemoglobin 33 pg (25-35) Mean Corpuscular Hemoglobin Concent 33 g/dL (31-37) Red Cell Distribution Width 14.1 % (11.5-14.5) Platelet Count 152 x10^3/uL (140-400) Neutrophils (%) (Auto) 62 % (31-73) Lymphocytes (%) (Auto) 26 % (24-48) Monocytes (%) (Auto) 11 % (0-9) Eosinophils (%) (Auto) 0 % (0-3) Basophils (%) (Auto) 0 % (0-3) Neutrophils # (Auto) 6.5 x10^3uL (1.8-7.7) Lymphocytes # (Auto) 2.7 x10^3/uL (1.0-4.8) Monocytes # (Auto) 1.2 x10^3/uL (0.0-1.1) Eosinophils # (Auto) 0.0 x10^3/uL (0.0-0.7) Basophils # (Auto) 0.0 x10^3/uL (0.0-0.2) Sodium Level 143 mmol/L (136-145) Potassium Level 4.6 mmol/L (3.5-5.1) Chloride Level 105 mmol/L (98-107) Carbon Dioxide Level 29 mmol/L (21-32) Anion Gap 9 (6-14) Blood Urea Nitrogen 49 mg/dL (7-20) Creatinine 2.0 mg/dL (0.6-1.0) Estimated GFR (Cockcroft-Gault) 30.3 BUN/Creatinine Ratio 25 (6-20) Glucose Level 103 mg/dL (70-99) Calcium Level 8.4 mg/dL (8.5-10.1) Total Bilirubin 0.4 mg/dL (0.2-1.0) Aspartate Amino Transf (AST/SGOT) 25 U/L (15-37) Alanine Aminotransferase (ALT/SGPT) 20 U/L (14-59) Alkaline Phosphatase 61 U/L (46-116) Total Protein 7.3 g/dL (6.4-8.2) Albumin 2.9 g/dL (3.4-5.0) Albumin/Globulin Ratio 0.7 (1.0-1.7) Glucose (Fingerstick) 107 mg/dL (70-99) Laboratory Tests Test 09/03/18 11:45 09/03/18 16:13 09/03/18 20:44 09/04/18 03:35 Glucose (Fingerstick) 195 mg/dL (70-99) 222 mg/dL (70-99) 144 mg/dL (70-99) White Blood Count 10.5 x10^3/uL (4.0-11.0) Red Blood Count 3.63 x10^6/uL (3.50-5.40) Hemoglobin 12.0 g/dL (12.0-15.5) Hematocrit 36.7 % (36.0-47.0) Mean Corpuscular Volume 101 fL (79-100) Mean Corpuscular Hemoglobin 33 pg (25-35) Mean Corpuscular Hemoglobin Concent 33 g/dL (31-37) Red Cell Distribution Width 14.1 % (11.5-14.5) Platelet Count 152 x10^3/uL (140-400) Neutrophils (%) (Auto) 62 % (31-73) Lymphocytes (%) (Auto) 26 % (24-48) Monocytes (%) (Auto) 11 % (0-9) Eosinophils (%) (Auto) 0 % (0-3) Basophils (%) (Auto) 0 % (0-3) Neutrophils # (Auto) 6.5 x10^3uL (1.8-7.7) Lymphocytes # (Auto) 2.7 x10^3/uL (1.0-4.8) Monocytes # (Auto) 1.2 x10^3/uL (0.0-1.1) Eosinophils # (Auto) 0.0 x10^3/uL (0.0-0.7) Basophils # (Auto) 0.0 x10^3/uL (0.0-0.2) Sodium Level 143 mmol/L (136-145) Potassium Level 4.6 mmol/L (3.5-5.1) Chloride Level 105 mmol/L (98-107) Carbon Dioxide Level 29 mmol/L (21-32) Anion Gap 9 (6-14) Blood Urea Nitrogen 49 mg/dL (7-20) Creatinine 2.0 mg/dL (0.6-1.0) Estimated GFR (Cockcroft-Gault) 30.3 BUN/Creatinine Ratio 25 (6-20) Glucose Level 103 mg/dL (70-99) Calcium Level 8.4 mg/dL (8.5-10.1) Total Bilirubin 0.4 mg/dL (0.2-1.0) Aspartate Amino Transf (AST/SGOT) 25 U/L (15-37) Alanine Aminotransferase (ALT/SGPT) 20 U/L (14-59) Alkaline Phosphatase 61 U/L (46-116) Total Protein 7.3 g/dL (6.4-8.2) Albumin 2.9 g/dL (3.4-5.0) Albumin/Globulin Ratio 0.7 (1.0-1.7) Test 09/04/18 07:18 Glucose (Fingerstick) 107 mg/dL (70-99) Microbiology 09/02/18 Blood Culture - Preliminary, Resulted NO GROWTH AFTER 1 DAY Medications Current Medications Sodium Chloride 500 ml @ 500 mls/hr 1X ONCE IV Last administered on at 23:02; Start 09/02/18 at 22:45; Stop 09/02/18 at 23:44; Status DC Albuterol/ Ipratropium (Duoneb) 3 ml 1X ONCE NEB Last administered on at 22:52; Start 09/02/18 at 22:45; Stop 09/02/18 at 22:52; Status DC Sodium Chloride 1,000 ml @ 1,000 mls/hr 1X ONCE IV Last administered on at 23:44; Start 09/02/18 at 23:45; Stop 09/03/18 at 00:44; Status DC Methylprednisolone Sodium Succinate (SOLU-Medrol 125MG VIAL) 125 mg 1X ONCE IV Last administered on 09/03/18at 01:02; Start 09/03/18 at 00:45; Stop 09/03/18 at 00:46; Status DC Sodium Chloride 500 ml @ 500 mls/hr 1X ONCE IV ; Start 09/03/18 at 01:15; Stop 09/03/18 at 02:14; Status DC Ondansetron HCl (Zofran) 4 mg PRN Q8HRS PRN IV NAUSEA/VOMITING; Start 09/03/18 at 01:30; Stop 09/04/18 at 01:29; Status DC Sodium Chloride 1,000 ml @ 150 mls/hr Q6H40M IV Last administered on at 05:50; Start 09/03/18 at 01:30; Stop 09/03/18 at 12:20; Status DC Acetaminophen (Tylenol) 650 mg PRN Q4HRS PRN PO FEVER; Start 09/03/18 at 01:30 ; Stop 09/04/18 at 01:29; Status DC Albuterol/ Ipratropium (Duoneb) 3 ml RTQID NEB Last administered on 09/03/18at 08:23; Start 09/03/18 at 08:00; Stop 09/03/18 at 09:31; Status DC Lactic Acid (Lac-Hydrin) 1 sherri BID TP Last administered on 09/03/18 21:14; Start 09/03/18 at 10:00 Aspirin (Children'S Aspirin) 81 mg DAILY PO Last administered on 09/04/18 08: 47; Start 09/03/18 at 10:00 Furosemide (Lasix) 80 mg BID94 PO Last administered on 09/04/18 08:46; Start 09/03/18 at 10:00 Gabapentin (Neurontin) 300 mg PRN BID PRN PO neuropathy Last administered on 11:39; Start 09/03/18 at 09:30 Insulin Glargine (Lantus) 10 units QHS SQ ; Start 09/03/18 at 21:00 Losartan Potassium (Cozaar) 25 mg DAILY PO Last administered on 09/04/18 08:48 ; Start 09/03/18 at 10:00 Dipyridamole/ Aspirin (Aggrenox) 1 cap BID PO Last administered on 09/04/18 08 :46; Start 09/03/18 at 10:00 Atorvastatin Calcium (Lipitor) 80 mg DAILY PO Last administered on 09/04/18 08 :46; Start 09/03/18 at 10:00 Hydralazine HCl (Apresoline) 10 mg TID PO Last administered on 09/04/18 08:46 ; Start 09/03/18 at 10:00 Isosorbide Dinitrate (Isordil) 20 mg TID PO Last administered on 09/04/18 08: 45; Start 09/03/18 at 10:00 Cetirizine HCl (ZyrTEC) 10 mg DAILY PO Last administered on 09/04/18 08:47; Start 09/04/18 at 09:00 Magnesium Oxide (Magnesium Oxide) 400 mg BID PO Last administered on 09/04/18 08:45; Start 09/03/18 at 10:00 Potassium Chloride (Klor-Con) 20 meq DAILYWBKFT PO Last administered on 08:47; Start 09/03/18 at 10:00 Albuterol/ Ipratropium (Duoneb) 3 ml RTQID NEB Last administered on 09/04/18 08:03; Start 09/03/18 at 12:00 Sodium Chloride 1,000 ml @ 100 mls/hr 1X ONCE IV Last administered on at 14:48; Start 09/03/18 at 15:00; Stop 09/04/18 at 00:59; Status DC Heparin Sodium (Porcine) (Heparin Sodium) 5,000 unit Q8HRS SQ Last administered on 09/04/18at 05:39; Start 09/03/18 at 22:00 Doxycycline Hyclate 100 mg/ Dextrose 100 ml @ 50 mls/hr Q12HR IV Last administered on 09/04/18at 08:51; Start 09/03/18 at 17:00 Lactobacillus Rhamnosus (Culturelle) 1 cap BID PO Last administered on at 08:48; Start 09/03/18 at 21:00 Budesonide (Pulmicort) 0.5 mg RTBID NEB ; Start 09/04/18 at 20:00 Active Scripts Active Reported Spiriva (Tiotropium [place]) 18 Mcg Cap.w.dev 2 Inh IH DAILY Potassium Chloride 20 Meq Tablet.er 20 Meq PO DAILY Mag-Oxide (Magnesium Oxide) 400 Mg Tablet 1 Tab PO BID Losartan Potassium (Losartan Potassium) 25 Mg Tablet 25 Mg PO DAILY Loratadine 10 Mg Tablet 10 Tab PO DAILY Lantus Solostar (Insulin Glargine,Hum.rec.anlog) 100 Unit/1 Ml Insuln.pen 10 Unit SQ QHS Isosorbide Dinitrate 20 Mg Tablet 20 Mg PO TID Hydralazine Hcl 10 Mg Tablet 1 Tab PO TID Gabapentin (Gabapentin) 300 Mg Capsule 300 Mg PO BID PRN Furosemide 80 Mg Tablet 1 Tab PO BID Atorvastatin Calcium 80 Mg Tablet 1 Tab PO DAILY Aspirin 81 Mg Tab.chew 1 Tab PO DAILY Skin Treatment (Ammonium Lactate) 225 Gm Lotion 225 Gm TP BID Aspirin-Dipyridam ER 25-200 mg (Aspirin/Dipyridamole) 1 Each Cpmp.12hr 25-200 Mg PO BID Vitals/I & O Vital Sign - Last 24 Hours 09/03/18 09/03/18 09/03/18 09/03/18 12:49 15:00 16:02 19:00 Temp 98.5 98.6 98.5 98.6 Pulse 89 86 Resp 18 18 B/P (MAP) 109/53 (71) 141/63 (89) Pulse Ox 98 97 O2 Delivery Nasal Cannula Nasal Cannula Nasal Cannula Nasal Cannula O2 Flow Rate 3.0 2.5 3.0 2.5 09/03/18 09/03/18 09/03/18 09/03/18 20:00 20:36 21:13 21:14 Pulse 86 86 B/P (MAP) 141/63 141/63 Pulse Ox 98 O2 Delivery Nasal Cannula Nasal Cannula O2 Flow Rate 2.0 2.0 09/03/18 09/04/18 09/04/18 09/04/18 23:00 03:39 07:31 08:00 Temp 98.1 98.2 98.1 98.2 Pulse 95 77 90 Resp 18 18 B/P (MAP) 122/56 (78) 129/62 (84) 138/65 (89) Pulse Ox 94 100 O2 Delivery Nasal Cannula Nasal Cannula Nasal Cannula O2 Flow Rate 2.5 2.5 3.0 09/04/18 09/04/18 09/04/18 09/04/18 08:03 08:45 08:46 08:48 Pulse 90 90 90 B/P (MAP) 138/65 138/65 138/65 Pulse Ox 99 O2 Delivery Nasal Cannula O2 Flow Rate 3.0 09/04/18 10:41 Temp 98.1 98.1 Pulse 90 Resp 18 B/P (MAP) 97/50 (66) Pulse Ox 98 O2 Delivery Nasal Cannula O2 Flow Rate 2.5 Intake and Output 09/03/18 09/03/18 09/04/18 15:00 23:00 07:00 Output Total 300 ml Balance -300 ml ANTHONY SINGH MD Sep 04, 2018 11:06
--- NOTE | 2018-09-04 11:36 | PDOC ---
ORLIN ISAACS [employer] 09/04/18 1136: CARDIO Progress Notes Date and Time Date of Service 09/04/2018 Time of Evaluation 1130 Subjective Subjective: No Chest Pain, No shortness of breath, No Palpitations Vitals Vitals Vital Signs Date Time Temp Pulse Resp B/P (MAP) Pulse Ox O2 Delivery O2 Flow Rate FiO2 09/04/18 10:41 98.1 90 18 97/50 (66) 98 Nasal Cannula 2.5 98.1 Weight Weight [ ] Input and Output Intake and Output Intake and Output 09/04/18 07:00 Output Total 300 ml Balance -300 ml Output Urine Total 300 ml # Voids 1 # Bowel Movements 2 Laboratory Labs Laboratory Tests Test 09/03/18 11:45 09/03/18 16:13 09/03/18 20:44 09/04/18 03:35 Glucose (Fingerstick) 195 mg/dL (70-99) 222 mg/dL (70-99) 144 mg/dL (70-99) White Blood Count 10.5 x10^3/uL (4.0-11.0) Red Blood Count 3.63 x10^6/uL (3.50-5.40) Hemoglobin 12.0 g/dL (12.0-15.5) Hematocrit 36.7 % (36.0-47.0) Mean Corpuscular Volume 101 fL (79-100) Mean Corpuscular Hemoglobin 33 pg (25-35) Mean Corpuscular Hemoglobin Concent 33 g/dL (31-37) Red Cell Distribution Width 14.1 % (11.5-14.5) Platelet Count 152 x10^3/uL (140-400) Neutrophils (%) (Auto) 62 % (31-73) Lymphocytes (%) (Auto) 26 % (24-48) Monocytes (%) (Auto) 11 % (0-9) Eosinophils (%) (Auto) 0 % (0-3) Basophils (%) (Auto) 0 % (0-3) Neutrophils # (Auto) 6.5 x10^3uL (1.8-7.7) Lymphocytes # (Auto) 2.7 x10^3/uL (1.0-4.8) Monocytes # (Auto) 1.2 x10^3/uL (0.0-1.1) Eosinophils # (Auto) 0.0 x10^3/uL (0.0-0.7) Basophils # (Auto) 0.0 x10^3/uL (0.0-0.2) Sodium Level 143 mmol/L (136-145) Potassium Level 4.6 mmol/L (3.5-5.1) Chloride Level 105 mmol/L (98-107) Carbon Dioxide Level 29 mmol/L (21-32) Anion Gap 9 (6-14) Blood Urea Nitrogen 49 mg/dL (7-20) Creatinine 2.0 mg/dL (0.6-1.0) Estimated GFR (Cockcroft-Gault) 30.3 BUN/Creatinine Ratio 25 (6-20) Glucose Level 103 mg/dL (70-99) Calcium Level 8.4 mg/dL (8.5-10.1) Total Bilirubin 0.4 mg/dL (0.2-1.0) Aspartate Amino Transf (AST/SGOT) 25 U/L (15-37) Alanine Aminotransferase (ALT/SGPT) 20 U/L (14-59) Alkaline Phosphatase 61 U/L (46-116) Total Protein 7.3 g/dL (6.4-8.2) Albumin 2.9 g/dL (3.4-5.0) Albumin/Globulin Ratio 0.7 (1.0-1.7) Test 09/04/18 07:18 Glucose (Fingerstick) 107 mg/dL (70-99) Microbiology Micro Microbiology 09/02/18 Blood Culture - Preliminary, Resulted NO GROWTH AFTER 1 DAY Physical Exam HEENT: Neck Supple W Full Motion Chest: Symmetric LUNGS: Other (diffuse wheeze) Heart: S1S2, RRR (SR) Abdomen: Soft N/T Extremities: No Edema, No Calf Tenderness Neurology: alert, oriented, follow commands Assessment Assessment 1. Atypical CP: doubt ACS. possibly from bronchospasm 2. AECOPD: reported fever at home, has been afebrile as an inpt. Pulmonary following 3. Hypotension: better after IVF 4. Mild systolic diastolic CHF: compensated. 5. RUFUS on CKD3: Cr better at 2.0 after hydration 6. Mild troponin elevation: peaked at 0.06. EKG SR with LVH, suspect demand mediated related to above culprits 7. CAD; CABG x5 06/2008, clinically stable. 8. Hx of angioedema: both from IV contrast and ACEi 9. Hyperglycemia: possibly steroid related. A1C 5.3 10. Hx of cardiomyopathy: EF on 05/2016 35% well recovered at 55% with nml WM Recommendations 1. Lower lasix dose to 40 mg po bid and addtl PRN. 2L FR. discussed daily wt and CHF symptoms. 2. Consider outpt stress test once extra cardiac issues are resolved. 3. Continue with BP regimen 4. Smoking cessation 5. Folow up in office in 4 weeks. FLOWER ANDERSON MD 09/05/18 0700: CARDIO Progress Notes Assessment Assessment Patient seen and examined 09/04/18. Agree with INVESTIGATIVE SHOPPER's assessment and plan. Chest pain with atypical features. Myocardial infarction has been ruled out. Plan for ischemic evaluation as an outpatient. ORLIN ISAACS APRN Sep 04, 2018 11:36 FLOWER ANDERSON MD Sep 05, 2018 07:00
[2018-09-04] MEDS ORDERED: NICOTINE 7MG PATCH. TD PRN (12:45)
[2018-09-04] MEDS ORDERED: HYDROcodone/APAP 7.5/325MG 1 TAB TABLET PO PRN (12:45)
[2018-09-04] MEDS: AMMONIUM LACTATE 12% TOPICAL LOTION 226GM BOTTLE. TP SCH ×2 (13:10→21:00)
--- NOTE | 2018-09-04 14:07 | PDOC2 ---
CONSULT Date of Consult Date of Consult DATE: 09/04/18 TIME: 13:59 Reason for Consult Reason for Consult: RUFUS Referring Physician Referring Physician: TANA Identification/Chief Complaint Chief Complaint SOB Source Source: Chart review, Patient History of Present Illness Reason for Visit: THIS IS A 63 YR OLD WITH SOB AND DX WITH AECOPD. NOTED TO HAVE A CR OF 3.1 WHICH IS ACUTE. SHE HAS CKD STAGE 3 WITH BASELINE CR OF ABOUT 2.0 AND FOLLOW AT [facility] FOR THIS. NO NSAID OR NEPHROTOXIN HX. ON ADMIT SHE IS ALSO NOTED TO BE HYPOTENSIVE. NO OTHER HX EXCEPT FOR URGE INCONTINENCE Past Medical History Cardiovascular: CAD, HTN, Hyperlipidemia Pulmonary: Bronchitis, COPD CENTRAL NERVOUS SYSTEM: CVA GI: GERD Heme/Onc: Anemia NOS Hepatobiliary: No pertinent hx Psych: No pertinent hx Musculoskeletal: Osteoarthritis Rheumatologic: No pertinent hx, Gout Infectious disease: No pertinent hx ENT: No pertinent hx Renal/: Chronic renal failure Endocrine: Diabetes Dermatology: No pertinent hx Past Surgical History Past Surgical History: CABG (x5 06/2008), (x2), Hysterectomy ([facility]ANCHO/BSO) Family History Family History: Hypertension Social History <1 pack per day ALCOHOL: none Drugs: None Lives: Alone Current Problem List Problem List Problems Medical Problems: (1) COPD exacerbation Status: Acute (2) Hypotension Status: Acute (3) Renal insufficiency Status: Acute (4) Weakness Status: Acute Current Medications Current Medications Current Medications Sodium Chloride 500 ml @ 500 mls/hr 1X ONCE IV Last administered on at 23:02; Start 09/02/18 at 22:45; Stop 09/02/18 at 23:44; Status DC Albuterol/ Ipratropium (Duoneb) 3 ml 1X ONCE NEB Last administered on at 22:52; Start 09/02/18 at 22:45; Stop 09/02/18 at 22:52; Status DC Sodium Chloride 1,000 ml @ 1,000 mls/hr 1X ONCE IV Last administered on at 23:44; Start 09/02/18 at 23:45; Stop 09/03/18 at 00:44; Status DC Methylprednisolone Sodium Succinate (SOLU-Medrol 125MG VIAL) 125 mg 1X ONCE IV Last administered on 09/03/18at 01:02; Start 09/03/18 at 00:45; Stop 09/03/18 at 00:46; Status DC Sodium Chloride 500 ml @ 500 mls/hr 1X ONCE IV ; Start 09/03/18 at 01:15; Stop 09/03/18 at 02:14; Status DC Ondansetron HCl (Zofran) 4 mg PRN Q8HRS PRN IV NAUSEA/VOMITING; Start 09/03/18 at 01:30; Stop 09/04/18 at 01:29; Status DC Sodium Chloride 1,000 ml @ 150 mls/hr Q6H40M IV Last administered on at 05:50; Start 09/03/18 at 01:30; Stop 09/03/18 at 12:20; Status DC Acetaminophen (Tylenol) 650 mg PRN Q4HRS PRN PO FEVER; Start 09/03/18 at 01:30 ; Stop 09/04/18 at 01:29; Status DC Albuterol/ Ipratropium (Duoneb) 3 ml RTQID NEB Last administered on 09/03/18at 08:23; Start 09/03/18 at 08:00; Stop 09/03/18 at 09:31; Status DC Lactic Acid (Lac-Hydrin) 1 sherri BID TP Last administered on 09/04/18at 13:10; Start 09/03/18 at 10:00 Aspirin (Children'S Aspirin) 81 mg DAILY PO Last administered on 09/04/18 08: 47; Start 09/03/18 at 10:00 Furosemide (Lasix) 80 mg BID94 PO Last administered on 09/04/18at 08:46; Start 09/03/18 at 10:00; Stop 09/04/18 at 11:36; Status DC Gabapentin (Neurontin) 300 mg PRN BID PRN PO neuropathy Last administered on at 11:39; Start 09/03/18 at 09:30 Insulin Glargine (Lantus) 10 units QHS SQ ; Start 09/03/18 at 21:00 Losartan Potassium (Cozaar) 25 mg DAILY PO Last administered on 09/04/18at 08:48 ; Start 09/03/18 at 10:00 Dipyridamole/ Aspirin (Aggrenox) 1 cap BID PO Last administered on 09/04/18at 08 :46; Start 09/03/18 at 10:00 Atorvastatin Calcium (Lipitor) 80 mg DAILY PO Last administered on 09/04/18 08 :46; Start 09/03/18 at 10:00 Hydralazine HCl (Apresoline) 10 mg TID PO Last administered on 09/04/18 08:46 ; Start 09/03/18 at 10:00 Isosorbide Dinitrate (Isordil) 20 mg TID PO Last administered on 09/04/18 08: 45; Start 09/03/18 at 10:00 Cetirizine HCl (ZyrTEC) 10 mg DAILY PO Last administered on 09/04/18 08:47; Start 09/04/18 at 09:00 Magnesium Oxide (Magnesium Oxide) 400 mg BID PO Last administered on 09/04/18 08:45; Start 09/03/18 at 10:00 Potassium Chloride (Klor-Con) 20 meq [id number] PO Last administered on 08:47; Start 09/03/18 at 10:00 Albuterol/ Ipratropium (Duoneb) 3 ml RTQID NEB Last administered on 09/04/18 12:05; Start 09/03/18 at 12:00 Sodium Chloride 1,000 ml @ 100 mls/hr 1X ONCE IV Last administered on 14:48; Start 09/03/18 at 15:00; Stop 09/04/18 at 00:59; Status DC Heparin Sodium (Porcine) (Heparin Sodium) 5,000 unit Q8HRS SQ Last administered on 09/04/18 05:39; Start 09/03/18 at 22:00 Doxycycline Hyclate 100 mg/ Dextrose 100 ml @ 50 mls/hr Q12HR IV Last administered on 09/04/18 08:51; Start 09/03/18 at 17:00 Lactobacillus Rhamnosus (Culturelle) 1 cap BID PO Last administered on 08:48; Start 09/03/18 at 21:00 Budesonide (Pulmicort) 0.5 mg RTBID NEB ; Start 09/04/18 at 20:00 Furosemide (Lasix) 40 mg BID94 PO ; Start 09/04/18 at 16:00 Methylprednisolone Sodium Succinate (SOLU-Medrol 125MG VIAL) 62.5 mg Q12HR IV ; Start 09/04/18 at 21:00 Acetaminophen/ Hydrocodone Bitart (Lortab 7.5/325) 1 tab PRN Q6HRS PRN PO PAIN Last administered on 09/04/18at 13:11; Start 09/04/18 at 12:45 Lidocaine (Lidoderm) 1 patch Q12HR TD ; Start 09/04/18 at 21:00 Nicotine (Nicoderm Cq 7mg) 1 patch PRN DAILY PRN TD SMOKING CESSATION Last administered on 09/04/18at 13:11; Start 09/04/18 at 12:45 Active Scripts Active Reported Spiriva (Tiotropium [place]) 18 Mcg Cap.w.dev 2 Inh IH DAILY Potassium Chloride 20 Meq Tablet.er 20 Meq PO DAILY Mag-Oxide (Magnesium Oxide) 400 Mg Tablet 1 Tab PO BID Losartan Potassium (Losartan Potassium) 25 Mg Tablet 25 Mg PO DAILY Loratadine 10 Mg Tablet 10 Tab PO DAILY Lantus Solostar (Insulin Glargine,Hum.rec.anlog) 100 Unit/1 Ml Insuln.pen 10 Unit SQ QHS Isosorbide Dinitrate 20 Mg Tablet 20 Mg PO TID Hydralazine Hcl 10 Mg Tablet 1 Tab PO TID Gabapentin (Gabapentin) 300 Mg Capsule 300 Mg PO BID PRN Furosemide 80 Mg Tablet 1 Tab PO BID Atorvastatin Calcium 80 Mg Tablet 1 Tab PO DAILY Aspirin 81 Mg Tab.chew 1 Tab PO DAILY Skin Treatment (Ammonium Lactate) 225 Gm Lotion 225 Gm TP BID Aspirin-Dipyridam ER 25-200 mg (Aspirin/Dipyridamole) 1 Each Cpmp.12hr 25-200 Mg PO BID Allergies Allergies: Coded Allergies: lisinopril (Verified Allergy, Severe, hives, 09/02/18) Iodinated Contrast- Oral and IV Dye (Verified Allergy, Mild, hives, ) latex (Verified Allergy, Mild, hives, 09/02/18) ROS General: YES: Fatigue, Malaise PSYCHOLOGICAL ROS: YES: Anxiety Eyes: Yes Decreased vision ALLERGY AND IMMUNOLOGY: YES: Seasonal Allergies Respiratory: YES: Cough, Shortness of breath Cardiovascular: yes Orthopnea Gastrointestinal: Yes Constipation Genitourinary: YES Incontinence, YES Other Musculoskeletal: Yes Muscular Weakness Neurological: Yes Weakness Skin: Yes Dry Skin Physical Exam General: Alert, Oriented X3, Cooperative, No acute distress HEENT: Atraumatic, PERRLA Lungs: Clear to auscultation, Normal air movement Heart: Regular rate, Normal S1, Normal S2 Abdomen: Normal bowel sounds, Soft Extremities: No clubbing, No cyanosis Skin: No breakdown Neuro: Normal speech, Sensation intact Psych/Mental Status: Mental status NL, Mood NL MUSCULOSKELETAL: No joint tenderness, No deformity Vitals VITALS Vital Signs Date Time Temp Pulse Resp B/P (MAP) Pulse Ox O2 Delivery O2 Flow Rate FiO2 09/04/18 10:41 98.1 90 18 97/50 (66) 98 Nasal Cannula 2.5 98.1 Labs Labs Laboratory Tests Test 09/02/18 22:40 09/03/18 00:03 09/03/18 04:15 09/03/18 07:29 White Blood Count 7.3 x10^3/uL (4.0-11.0) Red Blood Count 3.96 x10^6/uL (3.50-5.40) Hemoglobin 13.0 g/dL (12.0-15.5) Hematocrit 39.3 % (36.0-47.0) Mean Corpuscular Volume 99 fL (79-100) Mean Corpuscular Hemoglobin 33 pg (25-35) Mean Corpuscular Hemoglobin Concent 33 g/dL (31-37) Red Cell Distribution Width 13.8 % (11.5-14.5) Platelet Count 147 x10^3/uL (140-400) Neutrophils (%) (Auto) 51 % (31-73) Lymphocytes (%) (Auto) 39 % (24-48) Monocytes (%) (Auto) 10 % (0-9) Eosinophils (%) (Auto) 1 % (0-3) Basophils (%) (Auto) 1 % (0-3) Neutrophils # (Auto) 3.7 x10^3uL (1.8-7.7) Lymphocytes # (Auto) 2.8 x10^3/uL (1.0-4.8) Monocytes # (Auto) 0.7 x10^3/uL (0.0-1.1) Eosinophils # (Auto) 0.0 x10^3/uL (0.0-0.7) Basophils # (Auto) 0.0 x10^3/uL (0.0-0.2) Prothrombin Time 13.0 SEC (11.7-14.0) Prothromb Time International Ratio 1.0 (0.8-1.1) Sodium Level 138 mmol/L (136-145) Potassium Level 4.7 mmol/L (3.5-5.1) Chloride Level 99 mmol/L (98-107) Carbon Dioxide Level 30 mmol/L (21-32) Anion Gap 9 (6-14) Blood Urea Nitrogen 56 mg/dL (7-20) Creatinine 3.1 mg/dL (0.6-1.0) Estimated GFR (Cockcroft-Gault) 15.1 BUN/Creatinine Ratio 18 (6-20) Glucose Level 156 mg/dL (70-99) Lactic Acid Level 1.5 mmol/L (0.4-2.0) Calcium Level 8.4 mg/dL (8.5-10.1) Magnesium Level 2.9 mg/dL (1.8-2.4) Total Bilirubin 0.6 mg/dL (0.2-1.0) Aspartate Amino Transf (AST/SGOT) 31 U/L (15-37) Alanine Aminotransferase (ALT/SGPT) 24 U/L (14-59) Alkaline Phosphatase 68 U/L (46-116) Troponin I Quantitative 0.042 ng/mL (0.000-0.055) 0.064 ng/mL (0.000-0.055) YM-Fye-I-Type Natriuretic Peptide 544 pg/mL (0-124) Total Protein 7.9 g/dL (6.4-8.2) Albumin 3.0 g/dL (3.4-5.0) Albumin/Globulin Ratio 0.6 (1.0-1.7) Urine Collection Type U cath Urine Color Yellow Urine Clarity Clear Urine pH 5.5 Urine Specific [place] 1.015 Urine Protein 30 mg/dL (NEG-TRACE) Urine Glucose (UA) Negative mg/dL (NEG) Urine Ketones (Stick) Negative mg/dL (NEG) Urine Blood Negative (NEG) Urine Nitrite Negative (NEG) Urine Bilirubin Negative (NEG) Urine Urobilinogen Dipstick 0.2 mg/dL (0.2 mg/dL) Urine Leukocyte Esterase Negative (NEG) Urine RBC Rare /HPF (0-2) Urine WBC 0 /HPF (0-4) Urine Squamous Epithelial Cells Few /LPF Urine Bacteria 0 /HPF (0-FEW) Urine Mucus Slight /LPF Influenza Type A Antigen Negative (NEGATIVE) Influenza Type B Antigen Negative (NEGATIVE) Glucose (Fingerstick) 178 mg/dL (70-99) Test 09/03/18 07:40 09/03/18 11:45 09/03/18 16:13 09/03/18 20:44 Sodium Level 141 mmol/L (136-145) Potassium Level 5.1 mmol/L (3.5-5.1) Chloride Level 105 mmol/L (98-107) Carbon Dioxide Level 27 mmol/L (21-32) Anion Gap 9 (6-14) Blood Urea Nitrogen 52 mg/dL (7-20) Creatinine 2.4 mg/dL (0.6-1.0) Estimated GFR (Cockcroft-Gault) 24.5 Glucose Level 181 mg/dL (70-99) Hemoglobin A1c 5.3 % (4.8-5.6) Calcium Level 8.5 mg/dL (8.5-10.1) Magnesium Level 2.9 mg/dL (1.8-2.4) Troponin I Quantitative 0.057 ng/mL (0.000-0.055) Triglycerides Level 212 mg/dL (0-150) Cholesterol Level 136 mg/dL (0-200) LDL Cholesterol, Calculated 73 mg/dL (0-100) VLDL Cholesterol, Calculated 42 mg/dL (0-40) Non-HDL Cholesterol Calculated 115 mg/dL (0-129) HDL Cholesterol 21 mg/dL (40-60) Cholesterol/HDL Ratio 6.5 Thyroid Stimulating Hormone (TSH) 0.476 uIU/mL (0.358-3.74) Glucose (Fingerstick) 195 mg/dL (70-99) 222 mg/dL (70-99) 144 mg/dL (70-99) Test 09/04/18 03:35 09/04/18 07:18 09/04/18 11:49 White Blood Count 10.5 x10^3/uL (4.0-11.0) Red Blood Count 3.63 x10^6/uL (3.50-5.40) Hemoglobin 12.0 g/dL (12.0-15.5) Hematocrit 36.7 % (36.0-47.0) Mean Corpuscular Volume 101 fL (79-100) Mean Corpuscular Hemoglobin 33 pg (25-35) Mean Corpuscular Hemoglobin Concent 33 g/dL (31-37) Red Cell Distribution Width 14.1 % (11.5-14.5) Platelet Count 152 x10^3/uL (140-400) Neutrophils (%) (Auto) 62 % (31-73) Lymphocytes (%) (Auto) 26 % (24-48) Monocytes (%) (Auto) 11 % (0-9) Eosinophils (%) (Auto) 0 % (0-3) Basophils (%) (Auto) 0 % (0-3) Neutrophils # (Auto) 6.5 x10^3uL (1.8-7.7) Lymphocytes # (Auto) 2.7 x10^3/uL (1.0-4.8) Monocytes # (Auto) 1.2 x10^3/uL (0.0-1.1) Eosinophils # (Auto) 0.0 x10^3/uL (0.0-0.7) Basophils # (Auto) 0.0 x10^3/uL (0.0-0.2) Sodium Level 143 mmol/L (136-145) Potassium Level 4.6 mmol/L (3.5-5.1) Chloride Level 105 mmol/L (98-107) Carbon Dioxide Level 29 mmol/L (21-32) Anion Gap 9 (6-14) Blood Urea Nitrogen 49 mg/dL (7-20) Creatinine 2.0 mg/dL (0.6-1.0) Estimated GFR (Cockcroft-Gault) 30.3 BUN/Creatinine Ratio 25 (6-20) Glucose Level 103 mg/dL (70-99) Calcium Level 8.4 mg/dL (8.5-10.1) Total Bilirubin 0.4 mg/dL (0.2-1.0) Aspartate Amino Transf (AST/SGOT) 25 U/L (15-37) Alanine Aminotransferase (ALT/SGPT) 20 U/L (14-59) Alkaline Phosphatase 61 U/L (46-116) Total Protein 7.3 g/dL (6.4-8.2) Albumin 2.9 g/dL (3.4-5.0) Albumin/Globulin Ratio 0.7 (1.0-1.7) Glucose (Fingerstick) 107 mg/dL (70-99) 118 mg/dL (70-99) Laboratory Tests Test 09/03/18 16:13 09/03/18 20:44 09/04/18 03:35 09/04/18 07:18 Glucose (Fingerstick) 222 mg/dL (70-99) 144 mg/dL (70-99) 107 mg/dL (70-99) White Blood Count 10.5 x10^3/uL (4.0-11.0) Red Blood Count 3.63 x10^6/uL (3.50-5.40) Hemoglobin 12.0 g/dL (12.0-15.5) Hematocrit 36.7 % (36.0-47.0) Mean Corpuscular Volume 101 fL (79-100) Mean Corpuscular Hemoglobin 33 pg (25-35) Mean Corpuscular Hemoglobin Concent 33 g/dL (31-37) Red Cell Distribution Width 14.1 % (11.5-14.5) Platelet Count 152 x10^3/uL (140-400) Neutrophils (%) (Auto) 62 % (31-73) Lymphocytes (%) (Auto) 26 % (24-48) Monocytes (%) (Auto) 11 % (0-9) Eosinophils (%) (Auto) 0 % (0-3) Basophils (%) (Auto) 0 % (0-3) Neutrophils # (Auto) 6.5 x10^3uL (1.8-7.7) Lymphocytes # (Auto) 2.7 x10^3/uL (1.0-4.8) Monocytes # (Auto) 1.2 x10^3/uL (0.0-1.1) Eosinophils # (Auto) 0.0 x10^3/uL (0.0-0.7) Basophils # (Auto) 0.0 x10^3/uL (0.0-0.2) Sodium Level 143 mmol/L (136-145) Potassium Level 4.6 mmol/L (3.5-5.1) Chloride Level 105 mmol/L (98-107) Carbon Dioxide Level 29 mmol/L (21-32) Anion Gap 9 (6-14) Blood Urea Nitrogen 49 mg/dL (7-20) Creatinine 2.0 mg/dL (0.6-1.0) Estimated GFR (Cockcroft-Gault) 30.3 BUN/Creatinine Ratio 25 (6-20) Glucose Level 103 mg/dL (70-99) Calcium Level 8.4 mg/dL (8.5-10.1) Total Bilirubin 0.4 mg/dL (0.2-1.0) Aspartate Amino Transf (AST/SGOT) 25 U/L (15-37) Alanine Aminotransferase (ALT/SGPT) 20 U/L (14-59) Alkaline Phosphatase 61 U/L (46-116) Total Protein 7.3 g/dL (6.4-8.2) Albumin 2.9 g/dL (3.4-5.0) Albumin/Globulin Ratio 0.7 (1.0-1.7) Test 09/04/18 11:49 Glucose (Fingerstick) 118 mg/dL (70-99) Assessment/Plan Assessment/Plan IMP AECOPD RUFUS WITH CR OF 3.1-IMPROVING CKD STAGE 3 WITH CR OF ABOUT 2.0 HYPOTENSION CM WITH EF OF 35% HX OF CHRONIC DIASTOLIC AND SYSTOLIC CHF PLAN ENC PO FLUIDS IVF'S STOPPED HOLD HER ARB IF BP NOT IMPROVED CURRENTLY ON LOWEST DOSE OF COZAAR-BENEFICIAL FOR HER CM WILL FOLLOW BRYANT GRIFFITHS MD Sep 04, 2018 14:07
[2018-09-04 14:29] VITALS: BP 118/65
[2018-09-04] MEDS: FUROSEMIDE 40 MG TABLET. PO SCH (16:30)
[2018-09-04 19:00] VITALS: BP 109/53
[2018-09-04] MEDS: BUDESONIDE 0.5 MG/2 ML NEBU. NEB SCH (19:41)
[2018-09-04] MEDS: LIDOCAINE (700MG/PATCH) PATCH. TD SCH (21:00)
[2018-09-04] MEDS: INSULIN GLARGINE 300 UNITS/3 ML INSULN.PEN. SQ SCH (21:00)
[2018-09-04] MEDS: methylPREDNISolone SOD SUCC PF 125 MG/2 ML VIAL. IV SCH (21:00)
[2018-09-04 22:46] VITALS: BP 122/56
[2018-09-05 02:51] VITALS: BP 155/67
[2018-09-05 04:24] LABS: ALBUMIN 3.1 g/dL (3.4-5.0); CREATININE 1.6 mg/dL (0.6-1.0); GFR 39.1; PHOSPHORUS 3.3 mg/dL (2.6-4.7)
[2018-09-05] MEDS: HEPARIN for SUB-Q USE 5,000 UNIT/ML VIAL. SQ SCH ×2 (06:00→14:39)
[2018-09-05] MEDS: BUDESONIDE 0.5 MG/2 ML NEBU. NEB SCH (07:21)
[2018-09-05] MEDS: IPRATRPIUM/ALBUTEROL 0.5/2.5MG 3 ML NEBU. NEB SCH ×2 (07:21→11:01)
[2018-09-05 07:33] VITALS: BP 154/95
[2018-09-05] MEDS: LIDOCAINE (700MG/PATCH) PATCH. TD SCH (09:00)
[2018-09-05] MEDS: methylPREDNISolone SOD SUCC PF 125 MG/2 ML VIAL. IV SCH (09:07)
[2018-09-05] MEDS: FUROSEMIDE 40 MG TABLET. PO SCH (09:07)
[2018-09-05] MEDS: MAGNESIUM OXIDE 400 MG TABLET PO SCH (09:07)
[2018-09-05] MEDS: hydrALAZINE 10 MG TABLET PO SCH ×2 (09:07→14:35)
[2018-09-05] MEDS: CETIRIZINE HCL 10 MG TABLET. PO SCH (09:08)
[2018-09-05] MEDS: POTASSIUM CHLORIDE 20 MEQ TABLET.ER. PO SCH (09:08)
[2018-09-05] MEDS: LACTOBACILLUS RHAMNOSUS GG 1 CAPSULE. PO SCH (09:08)
[2018-09-05] MEDS: ATORVASTATIN CALCIUM 40 MG TABLET. PO SCH (09:08)
[2018-09-05] MEDS: ASPIRIN CHEWABLE 81 MG TABLET. PO SCH (09:09)
[2018-09-05] MEDS: LOSARTAN POTASSIUM 25 MG TABLET. PO SCH (09:09)
[2018-09-05] MEDS: ISOSORBIDE DINITRATE 10 MG TABLET. PO SCH ×2 (09:09→14:35)
[2018-09-05] MEDS: ASPIRIN/DIPYRIDAMOLE 200/25MG CAP.ER.12H. PO SCH (09:09)
[2018-09-05] MEDS: AMMONIUM LACTATE 12% TOPICAL LOTION 226GM BOTTLE. TP SCH (09:10)
[2018-09-05] MEDS: DOXYCYCLINE HYCLATE 100 MG in IV DEXTROSE 5% 100ML 100 ML IV SCH (09:10)
--- NOTE | 2018-09-05 09:22 | PDOC ---
PROGRESS NOTES History of Present Illness History of Present Illness Assessment/Plan Assessment/Plan ASSESSMENT 1. Atypical CP: 2. AE COPD with possible pneumonia //home tmax 102.9 3. Possible early sepsis with poor hydration adequacy: BP better after IVF. 4. diastolic CHF 5. RUFUS on CKD3: 6. Mild troponin elevation: peaked at 0.06// demand mediated related to above culprits 7. CAD; CABG x5 06/2008 8. IV DYE ALLERGY 9. Hyperglycemia 10.cardiomyopathy: EF on 05/2016 35% 11. Coronary artery vascular calcifications compatible with CAD.ON CT 09/04 WHEEZING NOT IMPROVED PLAN 1. TTE, 2. CT chest REVIEWED 3. STRESS TEST as indicated 4. cardiac records.from [facility] 6. Smoking cessation 7. Consult pulmonary 8. dvt prophylaxis 9. renal consult 10, iv doxy 100mg bid 11. follow renal fx 12. duonebs qid 13. gi prophylaxis d/c home RX FOR PRED, DOXY AND ALBUTEROL PFT, REPEAT CT IN 12 MONTHS 36 d/c planning time Vitals Vitals Vital Signs Date Time Temp Pulse Resp B/P (MAP) Pulse Ox O2 Delivery O2 Flow Rate FiO2 09/05/18 09:09 75 154/95 09/05/18 07:33 98.2 18 100 Nasal Cannula 2.5 98.2 Physical Exam Physical Exam Physical Exam General: Alert, Oriented X3, Cooperative Heart: Regular rate (SR), Other (distant hearts Sounds) Abdomen: Soft Extremities: No cyanosis Skin: No breakdown, No significant lesion General: Alert, Oriented X3, Cooperative, mild distress Heart: Regular rate (SR), Normal S1, Other (distant hearts ounds) Lungs: Wheezing, Other (no distress) Abdomen: Normal bowel sounds, Soft Extremities: No clubbing, No cyanosis Skin: No breakdown Labs LABS Laboratory Tests Test 09/04/18 11:49 09/04/18 16:59 09/04/18 20:36 09/05/18 03:45 Glucose (Fingerstick) 118 mg/dL (70-99) 108 mg/dL (70-99) 125 mg/dL (70-99) Sodium Level 141 mmol/L (136-145) Potassium Level 5.0 mmol/L (3.5-5.1) Chloride Level 104 mmol/L (98-107) Carbon Dioxide Level 27 mmol/L (21-32) Anion Gap 10 (6-14) Blood Urea Nitrogen 38 mg/dL (7-20) Creatinine 1.6 mg/dL (0.6-1.0) Estimated GFR (Cockcroft-Gault) 39.1 Glucose Level 190 mg/dL (70-99) Calcium Level 9.0 mg/dL (8.5-10.1) Phosphorus Level 3.3 mg/dL (2.6-4.7) Albumin 3.1 g/dL (3.4-5.0) Test 09/05/18 06:55 Glucose (Fingerstick) 161 mg/dL (70-99) Assessment and Plan Assessmemt and Plan Problems Medical Problems: (1) COPD exacerbation Status: Acute (2) Hypotension Status: Acute (3) Renal insufficiency Status: Acute (4) Weakness Status: Acute Comment Review of Relevant I have reviewed the following items alvaro (where applicable) has been applied. Labs Laboratory Tests Test 09/03/18 11:45 09/03/18 16:13 09/03/18 20:44 09/04/18 03:35 Glucose (Fingerstick) 195 mg/dL (70-99) 222 mg/dL (70-99) 144 mg/dL (70-99) White Blood Count 10.5 x10^3/uL (4.0-11.0) Red Blood Count 3.63 x10^6/uL (3.50-5.40) Hemoglobin 12.0 g/dL (12.0-15.5) Hematocrit 36.7 % (36.0-47.0) Mean Corpuscular Volume 101 fL (79-100) Mean Corpuscular Hemoglobin 33 pg (25-35) Mean Corpuscular Hemoglobin Concent 33 g/dL (31-37) Red Cell Distribution Width 14.1 % (11.5-14.5) Platelet Count 152 x10^3/uL (140-400) Neutrophils (%) (Auto) 62 % (31-73) Lymphocytes (%) (Auto) 26 % (24-48) Monocytes (%) (Auto) 11 % (0-9) Eosinophils (%) (Auto) 0 % (0-3) Basophils (%) (Auto) 0 % (0-3) Neutrophils # (Auto) 6.5 x10^3uL (1.8-7.7) Lymphocytes # (Auto) 2.7 x10^3/uL (1.0-4.8) Monocytes # (Auto) 1.2 x10^3/uL (0.0-1.1) Eosinophils # (Auto) 0.0 x10^3/uL (0.0-0.7) Basophils # (Auto) 0.0 x10^3/uL (0.0-0.2) Sodium Level 143 mmol/L (136-145) Potassium Level 4.6 mmol/L (3.5-5.1) Chloride Level 105 mmol/L (98-107) Carbon Dioxide Level 29 mmol/L (21-32) Anion Gap 9 (6-14) Blood Urea Nitrogen 49 mg/dL (7-20) Creatinine 2.0 mg/dL (0.6-1.0) Estimated GFR (Cockcroft-Gault) 30.3 BUN/Creatinine Ratio 25 (6-20) Glucose Level 103 mg/dL (70-99) Calcium Level 8.4 mg/dL (8.5-10.1) Total Bilirubin 0.4 mg/dL (0.2-1.0) Aspartate Amino Transf (AST/SGOT) 25 U/L (15-37) Alanine Aminotransferase (ALT/SGPT) 20 U/L (14-59) Alkaline Phosphatase 61 U/L (46-116) Total Protein 7.3 g/dL (6.4-8.2) Albumin 2.9 g/dL (3.4-5.0) Albumin/Globulin Ratio 0.7 (1.0-1.7) Test 09/04/18 07:18 09/04/18 11:49 09/04/18 16:59 09/04/18 20:36 Glucose (Fingerstick) 107 mg/dL (70-99) 118 mg/dL (70-99) 108 mg/dL (70-99) 125 mg/dL (70-99) Test 09/05/18 03:45 09/05/18 06:55 Sodium Level 141 mmol/L (136-145) Potassium Level 5.0 mmol/L (3.5-5.1) Chloride Level 104 mmol/L (98-107) Carbon Dioxide Level 27 mmol/L (21-32) Anion Gap 10 (6-14) Blood Urea Nitrogen 38 mg/dL (7-20) Creatinine 1.6 mg/dL (0.6-1.0) Estimated GFR (Cockcroft-Gault) 39.1 Glucose Level 190 mg/dL (70-99) Calcium Level 9.0 mg/dL (8.5-10.1) Phosphorus Level 3.3 mg/dL (2.6-4.7) Albumin 3.1 g/dL (3.4-5.0) Glucose (Fingerstick) 161 mg/dL (70-99) Laboratory Tests Test 09/04/18 11:49 09/04/18 16:59 09/04/18 20:36 09/05/18 03:45 Glucose (Fingerstick) 118 mg/dL (70-99) 108 mg/dL (70-99) 125 mg/dL (70-99) Sodium Level 141 mmol/L (136-145) Potassium Level 5.0 mmol/L (3.5-5.1) Chloride Level 104 mmol/L (98-107) Carbon Dioxide Level 27 mmol/L (21-32) Anion Gap 10 (6-14) Blood Urea Nitrogen 38 mg/dL (7-20) Creatinine 1.6 mg/dL (0.6-1.0) Estimated GFR (Cockcroft-Gault) 39.1 Glucose Level 190 mg/dL (70-99) Calcium Level 9.0 mg/dL (8.5-10.1) Phosphorus Level 3.3 mg/dL (2.6-4.7) Albumin 3.1 g/dL (3.4-5.0) Test 09/05/18 06:55 Glucose (Fingerstick) 161 mg/dL (70-99) Microbiology 09/02/18 Blood Culture - Preliminary, Resulted NO GROWTH AFTER 2 DAYS Medications Current Medications Sodium Chloride 500 ml @ 500 mls/hr 1X ONCE IV Last administered on at 23:02; Start 09/02/18 at 22:45; Stop 09/02/18 at 23:44; Status DC Albuterol/ Ipratropium (Duoneb) 3 ml 1X ONCE NEB Last administered on at 22:52; Start 09/02/18 at 22:45; Stop 09/02/18 at 22:52; Status DC Sodium Chloride 1,000 ml @ 1,000 mls/hr 1X ONCE IV Last administered on at 23:44; Start 09/02/18 at 23:45; Stop 09/03/18 at 00:44; Status DC Methylprednisolone Sodium Succinate (SOLU-Medrol 125MG VIAL) 125 mg 1X ONCE IV Last administered on 09/03/18at 01:02; Start 09/03/18 at 00:45; Stop 09/03/18 at 00:46; Status DC Sodium Chloride 500 ml @ 500 mls/hr 1X ONCE IV ; Start 09/03/18 at 01:15; Stop 09/03/18 at 02:14; Status DC Ondansetron HCl (Zofran) 4 mg PRN Q8HRS PRN IV NAUSEA/VOMITING; Start 09/03/18 at 01:30; Stop 09/04/18 at 01:29; Status DC Sodium Chloride 1,000 ml @ 150 mls/hr Q6H40M IV Last administered on at 05:50; Start 09/03/18 at 01:30; Stop 09/03/18 at 12:20; Status DC Acetaminophen (Tylenol) 650 mg PRN Q4HRS PRN PO FEVER; Start 09/03/18 at 01:30 ; Stop 09/04/18 at 01:29; Status DC Albuterol/ Ipratropium (Duoneb) 3 ml RTQID NEB Last administered on 09/03/18at 08:23; Start 09/03/18 at 08:00; Stop 09/03/18 at 09:31; Status DC Lactic Acid (Lac-Hydrin) 1 sherri BID TP Last administered on 09/05/18at 09:10; Start 09/03/18 at 10:00 Aspirin (Children'S Aspirin) 81 mg DAILY PO Last administered on 09/05/18at 09: 09; Start 09/03/18 at 10:00 Furosemide (Lasix) 80 mg [id number] PO Last administered on 09/04/18at 08:46; Start 09/03/18 at 10:00; Stop 09/04/18 at 11:36; Status DC Gabapentin (Neurontin) 300 mg PRN BID PRN PO neuropathy Last administered on at 11:39; Start 09/03/18 at 09:30 Insulin Glargine (Lantus) 10 units QHS SQ ; Start 09/03/18 at 21:00 Losartan Potassium (Cozaar) 25 mg DAILY PO Last administered on 09/05/18 09:09 ; Start 09/03/18 at 10:00 Dipyridamole/ Aspirin (Aggrenox) 1 cap BID PO Last administered on 09/05/18 09 :09; Start 09/03/18 at 10:00 Atorvastatin Calcium (Lipitor) 80 mg DAILY PO Last administered on 09/05/18 09 :08; Start 09/03/18 at 10:00 Hydralazine HCl (Apresoline) 10 mg TID PO Last administered on 09/05/18 09:07 ; Start 09/03/18 at 10:00 Isosorbide Dinitrate (Isordil) 20 mg TID PO Last administered on 09/05/18 09: 09; Start 09/03/18 at 10:00 Cetirizine HCl (ZyrTEC) 10 mg DAILY PO Last administered on 09/05/18 09:08; Start 09/04/18 at 09:00 Magnesium Oxide (Magnesium Oxide) 400 mg BID PO Last administered on 09/05/18 09:07; Start 09/03/18 at 10:00 Potassium Chloride (Klor-Con) 20 meq [id number] PO Last administered on 09:08; Start 09/03/18 at 10:00 Albuterol/ Ipratropium (Duoneb) 3 ml RTQID NEB Last administered on 09/05/18 07:21; Start 09/03/18 at 12:00 Sodium Chloride 1,000 ml @ 100 mls/hr 1X ONCE IV Last administered on 14:48; Start 09/03/18 at 15:00; Stop 09/04/18 at 00:59; Status DC Heparin Sodium (Porcine) (Heparin Sodium) 5,000 unit Q8HRS SQ Last administered on 09/04/18 21:47; Start 09/03/18 at 22:00 Doxycycline Hyclate 100 mg/ Dextrose 100 ml @ 50 mls/hr Q12HR IV Last administered on 09/05/18 09:10; Start 09/03/18 at 17:00 Lactobacillus Rhamnosus (Culturelle) 1 cap BID PO Last administered on 09:08; Start 09/03/18 at 21:00 Budesonide (Pulmicort) 0.5 mg RTBID NEB Last administered on 09/05/18 07:21; Start 09/04/18 at 20:00 Furosemide (Lasix) 40 mg [id number] PO Last administered on 09/05/18 09:07; Start 09/04/18 at 16:00 Methylprednisolone Sodium Succinate (SOLU-Medrol 125MG VIAL) 62.5 mg Q12HR IV Last administered on 09/05/18 09:07; Start 09/04/18 at 21:00 Acetaminophen/ Hydrocodone Bitart (Lortab 7.5/325) 1 tab PRN Q6HRS PRN PO PAIN Last administered on 09/04/18 13:11; Start 09/04/18 at 12:45 Lidocaine (Lidoderm) 1 patch Q12HR TD Last administered on 09/04/18 21:00; Start 09/04/18 at 21:00 Nicotine (Nicoderm Cq 7mg) 1 patch PRN DAILY PRN TD SMOKING CESSATION Last administered on 09/04/18 13:11; Start 09/04/18 at 12:45 Guaifenesin (Mucinex) 600 mg BID PO Last administered on 09/05/18 09:07; Start 09/04/18 at 21:00 Active Scripts Active Reported Spiriva (Tiotropium [place]) 18 Mcg Cap.w.dev 2 Inh IH DAILY Potassium Chloride 20 Meq Tablet.er 20 Meq PO DAILY Mag-Oxide (Magnesium Oxide) 400 Mg Tablet 1 Tab PO BID Losartan Potassium (Losartan Potassium) 25 Mg Tablet 25 Mg PO DAILY Loratadine 10 Mg Tablet 10 Tab PO DAILY Lantus Solostar (Insulin Glargine,Hum.rec.anlog) 100 Unit/1 Ml Insuln.pen 10 Unit SQ QHS Isosorbide Dinitrate 20 Mg Tablet 20 Mg PO TID Hydralazine Hcl 10 Mg Tablet 1 Tab PO TID Gabapentin (Gabapentin) 300 Mg Capsule 300 Mg PO BID PRN Furosemide 80 Mg Tablet 1 Tab PO BID Atorvastatin Calcium 80 Mg Tablet 1 Tab PO DAILY Aspirin 81 Mg Tab.chew 1 Tab PO DAILY Skin Treatment (Ammonium Lactate) 225 Gm Lotion 225 Gm TP BID Aspirin-Dipyridam ER 25-200 mg (Aspirin/Dipyridamole) 1 Each Cpmp.12hr 25-200 Mg PO BID Vitals/I & O Vital Sign - Last 24 Hours 09/04/18 09/04/18 09/04/18 09/04/18 10:41 14:21 14:21 14:29 Temp 98.1 98.3 98.1 98.3 Pulse 90 91 86 91 Resp 18 18 B/P (MAP) 97/50 (66) 118/65 118/65 118/65 (82) Pulse Ox 98 98 O2 Delivery Nasal Cannula Nasal Cannula O2 Flow Rate 2.5 2.5 09/04/18 09/04/18 09/04/18 09/04/18 15:34 19:00 19:42 19:43 Temp 98.1 98.1 Pulse 80 Resp 18 B/P (MAP) 109/53 (71) Pulse Ox 97 98 99 99 O2 Delivery Nasal Cannula Nasal Cannula Nasal Cannula Nasal Cannula O2 Flow Rate 3.0 2.5 3.0 3.0 09/04/18 09/04/18 09/04/18 09/04/18 20:00 21:00 21:00 22:46 Temp 98.1 98.1 Pulse 80 80 81 Resp 17 B/P (MAP) 109/53 109/53 122/56 (78) Pulse Ox 97 O2 Delivery Nasal Cannula Nasal Cannula O2 Flow Rate 3.0 2.5 09/05/18 09/05/18 09/05/18 09/05/18 02:51 07:22 07:33 09:07 Temp 98.5 98.2 98.5 98.2 Pulse 84 75 75 Resp 18 18 B/P (MAP) 155/67 (96) 154/95 (114) 154/95 Pulse Ox 98 98 100 O2 Delivery Nasal Cannula Nasal Cannula Nasal Cannula O2 Flow Rate 2.5 3.0 2.5 09/05/18 09/05/18 09:09 09:09 Pulse 75 75 B/P (MAP) 154/95 154/95 Intake and Output 09/04/18 09/04/18 09/05/18 15:00 23:00 07:00 Intake Total 240 ml 1100 ml 220 ml Output Total 600 ml Balance 240 ml 500 ml 220 ml ANTHONY SINGH MD Sep 05, 2018 09:22
[2018-09-05 10:47] VITALS: BP 144/63
--- NOTE | 2018-09-05 11:03 | PDOC ---
PULMONARY PROGRESS NOTES Subjective PT STILL SOA ANDD WHEEZE NO CHEST PAIN Vitals Vital Signs Date Time Temp Pulse Resp B/P (MAP) Pulse Ox O2 Delivery O2 Flow Rate FiO2 09/05/18 10:47 98.0 74 18 144/63 (90) 100 Nasal Cannula 2.5 98.0 ROS: No Nausea, No Chest Pain, No Abdominal Pain, No Increase Cough Lungs: Wheezing Cardiovascular: S1, S2 Abdomen: Soft Neuro Exam: Alert Extremities: No Edema Skin: Warm Labs Laboratory Tests Test 09/03/18 11:45 09/03/18 16:13 09/03/18 20:44 09/04/18 03:35 Glucose (Fingerstick) 195 mg/dL (70-99) 222 mg/dL (70-99) 144 mg/dL (70-99) White Blood Count 10.5 x10^3/uL (4.0-11.0) Red Blood Count 3.63 x10^6/uL (3.50-5.40) Hemoglobin 12.0 g/dL (12.0-15.5) Hematocrit 36.7 % (36.0-47.0) Mean Corpuscular Volume 101 fL (79-100) Mean Corpuscular Hemoglobin 33 pg (25-35) Mean Corpuscular Hemoglobin Concent 33 g/dL (31-37) Red Cell Distribution Width 14.1 % (11.5-14.5) Platelet Count 152 x10^3/uL (140-400) Neutrophils (%) (Auto) 62 % (31-73) Lymphocytes (%) (Auto) 26 % (24-48) Monocytes (%) (Auto) 11 % (0-9) Eosinophils (%) (Auto) 0 % (0-3) Basophils (%) (Auto) 0 % (0-3) Neutrophils # (Auto) 6.5 x10^3uL (1.8-7.7) Lymphocytes # (Auto) 2.7 x10^3/uL (1.0-4.8) Monocytes # (Auto) 1.2 x10^3/uL (0.0-1.1) Eosinophils # (Auto) 0.0 x10^3/uL (0.0-0.7) Basophils # (Auto) 0.0 x10^3/uL (0.0-0.2) Sodium Level 143 mmol/L (136-145) Potassium Level 4.6 mmol/L (3.5-5.1) Chloride Level 105 mmol/L (98-107) Carbon Dioxide Level 29 mmol/L (21-32) Anion Gap 9 (6-14) Blood Urea Nitrogen 49 mg/dL (7-20) Creatinine 2.0 mg/dL (0.6-1.0) Estimated GFR (Cockcroft-Gault) 30.3 BUN/Creatinine Ratio 25 (6-20) Glucose Level 103 mg/dL (70-99) Calcium Level 8.4 mg/dL (8.5-10.1) Total Bilirubin 0.4 mg/dL (0.2-1.0) Aspartate Amino Transf (AST/SGOT) 25 U/L (15-37) Alanine Aminotransferase (ALT/SGPT) 20 U/L (14-59) Alkaline Phosphatase 61 U/L (46-116) Total Protein 7.3 g/dL (6.4-8.2) Albumin 2.9 g/dL (3.4-5.0) Albumin/Globulin Ratio 0.7 (1.0-1.7) Test 09/04/18 07:18 09/04/18 11:49 09/04/18 16:59 09/04/18 20:36 Glucose (Fingerstick) 107 mg/dL (70-99) 118 mg/dL (70-99) 108 mg/dL (70-99) 125 mg/dL (70-99) Test 09/05/18 03:45 09/05/18 06:55 Sodium Level 141 mmol/L (136-145) Potassium Level 5.0 mmol/L (3.5-5.1) Chloride Level 104 mmol/L (98-107) Carbon Dioxide Level 27 mmol/L (21-32) Anion Gap 10 (6-14) Blood Urea Nitrogen 38 mg/dL (7-20) Creatinine 1.6 mg/dL (0.6-1.0) Estimated GFR (Cockcroft-Gault) 39.1 Glucose Level 190 mg/dL (70-99) Calcium Level 9.0 mg/dL (8.5-10.1) Phosphorus Level 3.3 mg/dL (2.6-4.7) Albumin 3.1 g/dL (3.4-5.0) Glucose (Fingerstick) 161 mg/dL (70-99) Laboratory Tests Test 09/04/18 11:49 09/04/18 16:59 09/04/18 20:36 09/05/18 03:45 Glucose (Fingerstick) 118 mg/dL (70-99) 108 mg/dL (70-99) 125 mg/dL (70-99) Sodium Level 141 mmol/L (136-145) Potassium Level 5.0 mmol/L (3.5-5.1) Chloride Level 104 mmol/L (98-107) Carbon Dioxide Level 27 mmol/L (21-32) Anion Gap 10 (6-14) Blood Urea Nitrogen 38 mg/dL (7-20) Creatinine 1.6 mg/dL (0.6-1.0) Estimated GFR (Cockcroft-Gault) 39.1 Glucose Level 190 mg/dL (70-99) Calcium Level 9.0 mg/dL (8.5-10.1) Phosphorus Level 3.3 mg/dL (2.6-4.7) Albumin 3.1 g/dL (3.4-5.0) Test 09/05/18 06:55 Glucose (Fingerstick) 161 mg/dL (70-99) Medications Active Scripts Medications Dose Route/Sig Max Daily Dose Days Date Category Spiriva (Tiotropium [place]) 18 Mcg Cap.w.dev 2 Inh IH DAILY 09/03/18 Reported Potassium Chloride 20 Meq Tablet.er 20 Meq PO DAILY 09/03/18 Reported Mag-Oxide (Magnesium Oxide) 400 Mg Tablet 1 Tab PO BID 09/03/18 Reported Losartan Potassium (Losartan Potassium) 25 Mg Tablet 25 Mg PO DAILY 09/03/18 Reported Loratadine 10 Mg Tablet 10 Tab PO DAILY 09/03/18 Reported Lantus Solostar (Insulin Glargine,Hum.rec.anlog) 100 Unit/1 Ml Insuln.pen 10 Unit SQ QHS 09/03/18 Reported Isosorbide Dinitrate 20 Mg Tablet 20 Mg PO TID 09/03/18 Reported Hydralazine Hcl 10 Mg Tablet 1 Tab PO TID 09/03/18 Reported Gabapentin (Gabapentin) 300 Mg Capsule 300 Mg PO BID PRN 09/03/18 Reported Furosemide 80 Mg Tablet 1 Tab PO BID 09/03/18 Reported Atorvastatin Calcium 80 Mg Tablet 1 Tab PO DAILY 09/03/18 Reported Aspirin 81 Mg Tab.chew 1 Tab PO DAILY 09/03/18 Reported Skin Treatment (Ammonium Lactate) 225 Gm Lotion 225 Gm TP BID 09/03/18 Reported Aspirin-Dipyridam ER 25-200 mg (Aspirin/Dipyridamole) 1 Each Cpmp.12hr 25-200 Mg PO BID 09/03/18 Reported Impression . IMPRESSION: 1. Progressive dyspnea secondary to acute exacerbation of chronic obstructive pulmonary disease. 2. Abnormal CT chest revealing 4 mm nodule, recommend repeating CT in 12 months. 3. Atypical chest pain. 4. Chronic diastolic heart failure. 5. [id number] kidney disease. 6. Elevated troponin. 7. Coronary artery disease with previous coronary artery bypass grafting. 8. Cardiomyopathy, ejection fraction in the past of 35%. Plan . DC SPOKE WITH DR SINGH RX FOR PRED, DOXY AND ALBUTEROL PFT, REPEAT CT IN 12 MONTHS FOLLOW CARD INPUT AVOID CAFFEINE AND TOBACCO THEA CHAN MD Sep 05, 2018 11:03
--- NOTE | 2018-09-05 11:43 | PDOC ---
Renal-Progress Notes Subjective Notes Notes LESS SOB History of Present Illness Hx of present illness STABLE Vitals Vitals Vital Signs Date Time Temp Pulse Resp B/P (MAP) Pulse Ox O2 Delivery O2 Flow Rate FiO2 09/05/18 11:01 98 Nasal Cannula 3.0 09/05/18 10:47 98.0 74 18 144/63 (90) 98.0 Weight Weight [ ] I.O. Intake and Output Intake and Output 09/05/18 07:00 Intake Total 1560 ml Output Total 600 ml Balance 960 ml Intake Oral 1460 ml IV Total 100 ml Output Urine Total 600 ml # Voids 2 # Bowel Movements 1 Labs Labs Laboratory Tests Test 09/04/18 11:49 09/04/18 16:59 09/04/18 20:36 09/05/18 03:45 Glucose (Fingerstick) 118 mg/dL (70-99) 108 mg/dL (70-99) 125 mg/dL (70-99) Sodium Level 141 mmol/L (136-145) Potassium Level 5.0 mmol/L (3.5-5.1) Chloride Level 104 mmol/L (98-107) Carbon Dioxide Level 27 mmol/L (21-32) Anion Gap 10 (6-14) Blood Urea Nitrogen 38 mg/dL (7-20) Creatinine 1.6 mg/dL (0.6-1.0) Estimated GFR (Cockcroft-Gault) 39.1 Glucose Level 190 mg/dL (70-99) Calcium Level 9.0 mg/dL (8.5-10.1) Phosphorus Level 3.3 mg/dL (2.6-4.7) Albumin 3.1 g/dL (3.4-5.0) Test 09/05/18 06:55 Glucose (Fingerstick) 161 mg/dL (70-99) Micro Micro Microbiology 09/02/18 Blood Culture - Preliminary, Resulted NO GROWTH AFTER 2 DAYS Review of Systems Constitutional: yes: malaise, weakness, alert, oriented Ears/Nose/Throat: Yes: no symptom reported Pulmonary: Yes dyspnea Cardiovascular: Yes no symptom reported Genitourinary: Yes: no symptom reported Musculoskeletal: Yes: no symptom reported Skin: Yes no symptom reported Psychiatric/Neurological: Yes: no symptom reported Endocrine: Yes: no symptom reported Hematologic/Lymphatic: Yes: no symptom reported Physical Exam General Appearance: no apparent distress Skin: warm Respiratory: decreased breath sounds Heart: S1S2, RRR Abdomen: soft, bowel sounds present Extremities: pulses present Neurology: alert, oriented, follow commands Assessment Assessment IMP AECOPD-BETTER RUFUS WITH CR OF 3.1-AT PEAK-RESOLVED WITH CR OF 1.6 CKD STAGE 3 HYPOTENSION-RESOLVED CM WITH EF OF 35% HX OF CHRONIC DIASTOLIC AND SYSTOLIC CHF PLAN STABLE CONT SAME BRYANT GRIFFITHS MD Sep 05, 2018 11:43
--- NOTE | 2018-09-05 13:41 | PDOC3 ---
Discharge Summary Date of Admission: Sep 03, 2018 Date of Discharge: Sep 05, 2018 Follow-Up: 3-5 days Admitting Diagnosis comment: discharge dx 1. Atypical CP: 2. AE COPD with possible pneumonia //home tmax 102.9 POA 3. Possible early sepsis with poor hydration adequacy: BP better after IVF. 4. diastolic CHF 5. RUFUS on CKD3: 6. Mild troponin elevation: peaked at 0.06// demand mediated related to above culprits 7. CAD; CABG x5 06/2008 8. IV DYE ALLERGY 9. Hyperglycemia 10.cardiomyopathy: EF on 05/2016 35% 11. Coronary artery vascular calcifications compatible with CAD.ON CT 09/04 WHEEZING NOT IMPROVED 09/05 better, no smoking, home today PLAN 1. TTE, 2. CT chest REVIEWED 3. STRESS TEST as indicated 4. cardiac records.from [facility] 6. Smoking cessation 7. Consult pulmonary 8. dvt prophylaxis 9. renal consult 10, iv doxy 100mg bid 11. follow renal fx 12. duonebs qid 13. gi prophylaxis d/c home RX FOR PRED, DOXY AND ALBUTEROL PFT, REPEAT CT IN 12 MONTHS 36 d/c planning time Vitals Vitals Vital Signs Date Time Temp Pulse Resp B/P (MAP) Pulse Ox O2 Delivery O2 Flow Rate FiO2 09/05/18 09:09 75 154/95 09/05/18 07:33 98.2 18 100 Nasal Cannula 2.5 98.2 Physical Exam Physical Exam General: Alert, Oriented X3, Cooperative Heart: Regular rate (SR), Other (distant hearts Sounds) Abdomen: Soft Extremities: No cyanosis Skin: No breakdown, No significant lesion General: Alert, Oriented X3, Cooperative, mild distress Heart: Regular rate (SR), Normal S1, Other (distant hearts ounds) Lungs: Wheezing mild , Other (no distress) Abdomen: Normal bowel sounds, Soft Extremities: No clubbing, No cyanosis Skin: No breakdown FINAL DIAGNOSIS Problems Medical Problems: (1) COPD exacerbation Status: Acute (2) Hypotension Status: Acute (3) Renal insufficiency Status: Acute (4) Weakness Status: Acute Brief Hospital Course Ms. Oliveira is a 63 old [sex] who presented with [ ] CONDITION AT DISCHARGE: Improved Discharge Medications Current Medications Sodium Chloride 500 ml @ 500 mls/hr 1X ONCE IV Last administered on at 23:02; Start 09/02/18 at 22:45; Stop 09/02/18 at 23:44; Status DC Albuterol/ Ipratropium (Duoneb) 3 ml 1X ONCE NEB Last administered on at 22:52; Start 09/02/18 at 22:45; Stop 09/02/18 at 22:52; Status DC Sodium Chloride 1,000 ml @ 1,000 mls/hr 1X ONCE IV Last administered on at 23:44; Start 09/02/18 at 23:45; Stop 09/03/18 at 00:44; Status DC Methylprednisolone Sodium Succinate (SOLU-Medrol 125MG VIAL) 125 mg 1X ONCE IV Last administered on 09/03/18at 01:02; Start 09/03/18 at 00:45; Stop 09/03/18 at 00:46; Status DC Sodium Chloride 500 ml @ 500 mls/hr 1X ONCE IV ; Start 09/03/18 at 01:15; Stop 09/03/18 at 02:14; Status DC Ondansetron HCl (Zofran) 4 mg PRN Q8HRS PRN IV NAUSEA/VOMITING; Start 09/03/18 at 01:30; Stop 09/04/18 at 01:29; Status DC Sodium Chloride 1,000 ml @ 150 mls/hr Q6H40M IV Last administered on at 05:50; Start 09/03/18 at 01:30; Stop 09/03/18 at 12:20; Status DC Acetaminophen (Tylenol) 650 mg PRN Q4HRS PRN PO FEVER; Start 09/03/18 at 01:30 ; Stop 09/04/18 at 01:29; Status DC Albuterol/ Ipratropium (Duoneb) 3 ml RTQID NEB Last administered on 09/03/18at 08:23; Start 09/03/18 at 08:00; Stop 09/03/18 at 09:31; Status DC Lactic Acid (Lac-Hydrin) 1 sherri BID TP Last administered on 09/05/18at 09:10; Start 09/03/18 at 10:00 Aspirin (Children'S Aspirin) 81 mg DAILY PO Last administered on 09/05/18at 09: 09; Start 09/03/18 at 10:00 Furosemide (Lasix) 80 mg [id number] PO Last administered on 09/04/18 08:46; Start 09/03/18 at 10:00; Stop 09/04/18 at 11:36; Status DC Gabapentin (Neurontin) 300 mg PRN BID PRN PO neuropathy Last administered on 11:39; Start 09/03/18 at 09:30 Insulin Glargine (Lantus) 10 units QHS SQ ; Start 09/03/18 at 21:00 Losartan Potassium (Cozaar) 25 mg DAILY PO Last administered on 09/05/18 09:09 ; Start 09/03/18 at 10:00 Dipyridamole/ Aspirin (Aggrenox) 1 cap BID PO Last administered on 09/05/18 09 :09; Start 09/03/18 at 10:00 Atorvastatin Calcium (Lipitor) 80 mg DAILY PO Last administered on 09/05/18 09 :08; Start 09/03/18 at 10:00 Hydralazine HCl (Apresoline) 10 mg TID PO Last administered on 09/05/18 09:07 ; Start 09/03/18 at 10:00 Isosorbide Dinitrate (Isordil) 20 mg TID PO Last administered on 09/05/18 09: 09; Start 09/03/18 at 10:00 Cetirizine HCl (ZyrTEC) 10 mg DAILY PO Last administered on 09/05/18 09:08; Start 09/04/18 at 09:00 Magnesium Oxide (Magnesium Oxide) 400 mg BID PO Last administered on 09/05/18 09:07; Start 09/03/18 at 10:00 Potassium Chloride (Klor-Con) 20 meq [id number] PO Last administered on 09:08; Start 09/03/18 at 10:00 Albuterol/ Ipratropium (Duoneb) 3 ml RTQID NEB Last administered on 09/05/18 11:01; Start 09/03/18 at 12:00 Sodium Chloride 1,000 ml @ 100 mls/hr 1X ONCE IV Last administered on 14:48; Start 09/03/18 at 15:00; Stop 09/04/18 at 00:59; Status DC Heparin Sodium (Porcine) (Heparin Sodium) 5,000 unit Q8HRS SQ Last administered on 09/04/18 21:47; Start 09/03/18 at 22:00 Doxycycline Hyclate 100 mg/ Dextrose 100 ml @ 50 mls/hr Q12HR IV Last administered on 09/05/18 09:10; Start 09/03/18 at 17:00 Lactobacillus Rhamnosus (Culturelle) 1 cap BID PO Last administered on 09:08; Start 09/03/18 at 21:00 Budesonide (Pulmicort) 0.5 mg RTBID NEB Last administered on 09/05/18 07:21; Start 09/04/18 at 20:00 Furosemide (Lasix) 40 mg [id number] PO Last administered on 09/05/18 09:07; Start 09/04/18 at 16:00 Methylprednisolone Sodium Succinate (SOLU-Medrol 125MG VIAL) 62.5 mg Q12HR IV Last administered on 09/05/18 09:07; Start 09/04/18 at 21:00 Acetaminophen/ Hydrocodone Bitart (Lortab 7.5/325) 1 tab PRN Q6HRS PRN PO PAIN Last administered on 09/04/18 13:11; Start 09/04/18 at 12:45 Lidocaine (Lidoderm) 1 patch Q12HR TD Last administered on 09/04/18 21:00; Start 09/04/18 at 21:00 Nicotine (Nicoderm Cq 7mg) 1 patch PRN DAILY PRN TD SMOKING CESSATION Last administered on 09/04/18 13:11; Start 09/04/18 at 12:45 Guaifenesin (Mucinex) 600 mg BID PO Last administered on 09/05/18 09:07; Start 09/04/18 at 21:00 Active Scripts Active Reported Spiriva (Tiotropium [place]) 18 Mcg Cap.w.dev 2 Inh IH DAILY Potassium Chloride 20 Meq Tablet.er 20 Meq PO DAILY Mag-Oxide (Magnesium Oxide) 400 Mg Tablet 1 Tab PO BID Losartan Potassium (Losartan Potassium) 25 Mg Tablet 25 Mg PO DAILY Loratadine 10 Mg Tablet 10 Tab PO DAILY Lantus Solostar (Insulin Glargine,Hum.rec.anlog) 100 Unit/1 Ml Insuln.pen 10 Unit SQ QHS Isosorbide Dinitrate 20 Mg Tablet 20 Mg PO TID Hydralazine Hcl 10 Mg Tablet 1 Tab PO TID Gabapentin (Gabapentin) 300 Mg Capsule 300 Mg PO BID PRN Furosemide 80 Mg Tablet 1 Tab PO BID Atorvastatin Calcium 80 Mg Tablet 1 Tab PO DAILY Aspirin 81 Mg Tab.chew 1 Tab PO DAILY Skin Treatment (Ammonium Lactate) 225 Gm Lotion 225 Gm TP BID Aspirin-Dipyridam ER 25-200 mg (Aspirin/Dipyridamole) 1 Each Cpmp.12hr 25-200 Mg PO BID Vital Signs Vital Signs Date Time Temp Pulse Resp B/P (MAP) Pulse Ox O2 Delivery O2 Flow Rate FiO2 09/05/18 11:01 98 Nasal Cannula 3.0 09/05/18 10:47 98.0 74 18 144/63 (90) 98.0 Labs Laboratory Tests Test 09/03/18 16:13 09/03/18 20:44 09/04/18 03:35 09/04/18 07:18 Glucose (Fingerstick) 222 mg/dL (70-99) 144 mg/dL (70-99) 107 mg/dL (70-99) White Blood Count 10.5 x10^3/uL (4.0-11.0) Red Blood Count 3.63 x10^6/uL (3.50-5.40) Hemoglobin 12.0 g/dL (12.0-15.5) Hematocrit 36.7 % (36.0-47.0) Mean Corpuscular Volume 101 fL (79-100) Mean Corpuscular Hemoglobin 33 pg (25-35) Mean Corpuscular Hemoglobin Concent 33 g/dL (31-37) Red Cell Distribution Width 14.1 % (11.5-14.5) Platelet Count 152 x10^3/uL (140-400) Neutrophils (%) (Auto) 62 % (31-73) Lymphocytes (%) (Auto) 26 % (24-48) Monocytes (%) (Auto) 11 % (0-9) Eosinophils (%) (Auto) 0 % (0-3) Basophils (%) (Auto) 0 % (0-3) Neutrophils # (Auto) 6.5 x10^3uL (1.8-7.7) Lymphocytes # (Auto) 2.7 x10^3/uL (1.0-4.8) Monocytes # (Auto) 1.2 x10^3/uL (0.0-1.1) Eosinophils # (Auto) 0.0 x10^3/uL (0.0-0.7) Basophils # (Auto) 0.0 x10^3/uL (0.0-0.2) Sodium Level 143 mmol/L (136-145) Potassium Level 4.6 mmol/L (3.5-5.1) Chloride Level 105 mmol/L (98-107) Carbon Dioxide Level 29 mmol/L (21-32) Anion Gap 9 (6-14) Blood Urea Nitrogen 49 mg/dL (7-20) Creatinine 2.0 mg/dL (0.6-1.0) Estimated GFR (Cockcroft-Gault) 30.3 BUN/Creatinine Ratio 25 (6-20) Glucose Level 103 mg/dL (70-99) Calcium Level 8.4 mg/dL (8.5-10.1) Total Bilirubin 0.4 mg/dL (0.2-1.0) Aspartate Amino Transf (AST/SGOT) 25 U/L (15-37) Alanine Aminotransferase (ALT/SGPT) 20 U/L (14-59) Alkaline Phosphatase 61 U/L (46-116) Total Protein 7.3 g/dL (6.4-8.2) Albumin 2.9 g/dL (3.4-5.0) Albumin/Globulin Ratio 0.7 (1.0-1.7) Test 09/04/18 11:49 09/04/18 16:59 09/04/18 20:36 09/05/18 03:45 Glucose (Fingerstick) 118 mg/dL (70-99) 108 mg/dL (70-99) 125 mg/dL (70-99) Sodium Level 141 mmol/L (136-145) Potassium Level 5.0 mmol/L (3.5-5.1) Chloride Level 104 mmol/L (98-107) Carbon Dioxide Level 27 mmol/L (21-32) Anion Gap 10 (6-14) Blood Urea Nitrogen 38 mg/dL (7-20) Creatinine 1.6 mg/dL (0.6-1.0) Estimated GFR (Cockcroft-Gault) 39.1 Glucose Level 190 mg/dL (70-99) Calcium Level 9.0 mg/dL (8.5-10.1) Phosphorus Level 3.3 mg/dL (2.6-4.7) Albumin 3.1 g/dL (3.4-5.0) Test 09/05/18 06:55 09/05/18 11:49 Glucose (Fingerstick) 161 mg/dL (70-99) 225 mg/dL (70-99) Laboratory Tests Test 09/04/18 16:59 09/04/18 20:36 09/05/18 03:45 09/05/18 06:55 Glucose (Fingerstick) 108 mg/dL (70-99) 125 mg/dL (70-99) 161 mg/dL (70-99) Sodium Level 141 mmol/L (136-145) Potassium Level 5.0 mmol/L (3.5-5.1) Chloride Level 104 mmol/L (98-107) Carbon Dioxide Level 27 mmol/L (21-32) Anion Gap 10 (6-14) Blood Urea Nitrogen 38 mg/dL (7-20) Creatinine 1.6 mg/dL (0.6-1.0) Estimated GFR (Cockcroft-Gault) 39.1 Glucose Level 190 mg/dL (70-99) Calcium Level 9.0 mg/dL (8.5-10.1) Phosphorus Level 3.3 mg/dL (2.6-4.7) Albumin 3.1 g/dL (3.4-5.0) Test 09/05/18 11:49 Glucose (Fingerstick) 225 mg/dL (70-99) Allergies Allergies Coded Allergies Type Severity Reaction Last Updated Verified lisinopril Allergy Severe hives 09/02/18 Yes Iodinated Contrast- Oral and IV Dye Allergy Mild hives 09/02/18 Yes latex Allergy Mild hives 09/02/18 Yes Disposition/Orders: D/C to Home Patient Instructions D/C PLANNING 36 MIN ANTHONY SINGH MD Sep 05, 2018 13:41
[2018-09-05] MEDS ORDERED: LIDO700A39 TD (13:44)
[2018-09-05] MEDS ORDERED: FURO40TA4 PO (13:44)
[2018-09-05] MEDS ORDERED: LACT1CAP19 PO (13:44)
[2018-09-05] MEDS ORDERED: PRED50TA PO (13:44)
[2018-09-05] MEDS ORDERED: DOXY100C2 PO (13:45)
[2018-09-05 14:50] VITALS: BP 155/74
== END 2018-09-05 15:40 | disposition home or self-care (01) | DRG 682 ==
LOC: ER 22:28 → 6 SOUTH 09-03 00:35 → 2 NORTH 09-03 02:25
PROVIDERS: ADMIT Internal Medicine; ATTEND Internal Medicine
DX: N17.9 Acute kidney failure, unspecified (principal); J18.9 Pneumonia, unspecified organism; I13.0 Hypertensive heart and chronic kidney disease with heart failure and stage 1 through stage 4 chronic kidney disease, or unspecified chronic kidney disease; I42.9 Cardiomyopathy, unspecified; J44.1 Chronic obstructive pulmonary disease with (acute) exacerbation; I50.42 Chronic combined systolic (congestive) and diastolic (congestive) heart failure; J44.0 Chronic obstructive pulmonary disease with (acute) lower respiratory infection; E03.9 Hypothyroidism, unspecified; E11.22 Type 2 diabetes mellitus with diabetic chronic kidney disease; E11.65 Type 2 diabetes mellitus with hyperglycemia; E78.5 Hyperlipidemia, unspecified; F17.210 Nicotine dependence, cigarettes, uncomplicated; G47.33 Obstructive sleep apnea (adult) (pediatric); K21.9 Gastro-esophageal reflux disease without esophagitis; N18.3 Chronic kidney disease, stage 3 (moderate); M19.90 Unspecified osteoarthritis, unspecified site; I25.10 Atherosclerotic heart disease of native coronary artery without angina pectoris; I25.2 Old myocardial infarction; Z82.49 Family history of ischemic heart disease and other diseases of the circulatory system; Z86.73 Personal history of transient ischemic attack (TIA), and cerebral infarction without residual deficits; Z91.041 Radiographic dye allergy status; Z95.1 Presence of aortocoronary bypass graft; Z88.8 Allergy status to other drugs, medicaments and biological substances; Z90.710 Acquired absence of both cervix and uterus; Z91.040 Latex allergy status; I95.9 Hypotension, unspecified
CPT/HCPCS: 36415; 71045; 71250; 80048; 80053; 80061; 80069; 81001; 82962; 83036; 83605; 83735; 83880; 84443; 84484; 85025; 85610; 87040; 87804; 93005; 93306; 94640; 94760; 96361; 96374; J1644; J1815; J2930; J3490; J7030; J7040; J7620; J7626; 99285-25